=== PATIENT | male | born 1955 | race Caucasian/White ===

== ENCOUNTER 2017-04-23 06:44 | Emergency (ER) | payer MEDICARE, MEDICAID ==
[2017-04-23 07:16] VITALS: BP 167/98
--- NOTE | 2017-04-23 07:47 | EDM.PDOC ---
ED HPI GENERAL MEDICAL PROBLEM - General Chief Complaint: General Stated Complaint: LEFT EAR PAIN Time Seen by Provider: 04/23/17 07:20 Source of Information: Reports: Patient History Limitations: Reports: No Limitations - History of Present Illness INITIAL COMMENTS - FREE TEXT/NARRATIVE: 62 YO WM presents to ER complaining of left ear pain with bloody drainage. Pt reports his ear was hurting prompting him to use a Qtip in his ear this am. After using the Qtip he noticed a bloody discharge from his left ear. Pt denies any fever or URI symptoms. Onset: Today Location: Reports: Other (left ear) Quality: Reports: Ache Severity: Mild Improves with: Reports: None Worsens with: Reports: None Associated Symptoms: Reports: No Other Symptoms - Related Data Allergies Allergy/AdvReac Type Severity Reaction Status Date / Time No Known Drug Allergies Allergy Other Verified 04/23/17 06:58 Home Meds: Home Meds Insulin Detemir [Levemir] 34 units SQ BEDTIME 02/18/14 [History] Insulin Regular, Human [NovoLIN R] 5 units SQ TIDMEALS PRN 02/18/14 [History] Lisinopril [Prinivil] 20 mg PO DAILY 02/18/14 [History] Tamsulosin [Tamsulosin 24 Hr] 0.4 mg PO DAILY 02/18/14 [History] Diazepam [Diazepam] 10 mg PO BEDTIME PRN 10/05/15 [History] Gemfibrozil [Gemfibrozil] 600 mg PO BIDAC 10/05/15 [History] Levothyroxine Sodium [Levothyroxine Sodium] 100 mcg PO DAILY 10/05/15 [History] oxyCODONE HCl [Oxycontin] 10 mg PO TID PRN 10/05/15 [History] Albuterol Sulfate [Proair Hfa] 2 puff IH Q4H PRN 09/13/16 [History] Amoxicillin/Clavulanate K [Augmentin 875 MG/125 MG] 1 tab PO Q12HR #20 tablet [Rx] Hydrocort/Neomycin/Polymyxin B [Cortisporin Otic Susp] 10 ml EARLF QID #10 bottle 04/23/17 [Rx] Past Medical History Other HEENT History: blind in left eye Cardiovascular History: Reports: High Cholesterol, Hypertension Genitourinary History: Reports: Other (See Below) Other Genitourinary History: on flomax for urinary flow Musculoskeletal History: Reports: Arthritis Neurological History: Reports: Head Trauma Endocrine/Metabolic History: Reports: Diabetes, Type II, Hypothyroidism Hematologic History: Reports: Anemia - Infectious Disease History Infectious Disease History: Reports: Hepatitis C - Past Surgical History Neurological Surgical History: Reports: C-Spine Social & Family History - Tobacco Use Smoking Status *Q: Former Smoker Years of Tobacco use: 40 Packs/Tins Daily: 1 Used Tobacco, but Quit: Yes Month Tobacco Last Used: nov Second Hand Smoke Exposure: No - Caffeine Use Caffeine Use: Reports: Coffee, Soda - Alcohol Use Days Per Week of Alcohol Use: 0 - Recreational Drug Use Recreational Drug Use: No Drug Use in Last 12 Months: No Recreational Drug Type: Reports: Marijuana/Hashish ED ROS GENERAL - Review of Systems Review Of Systems: See Below Constitutional: Reports: No Symptoms HEENT: Reports: Ear Discharge, Ear Pain, Hearing Loss. Denies: Vertigo Respiratory: Reports: No Symptoms Cardiovascular: Reports: No Symptoms Endocrine: Reports: No Symptoms GI/Abdominal: Reports: No Symptoms : Reports: No Symptoms Musculoskeletal: Reports: No Symptoms Skin: Reports: No Symptoms Neurological: Reports: No Symptoms Psychiatric: Reports: No Symptoms Hematologic/Lymphatic: Reports: No Symptoms Immunologic: Reports: No Symptoms ED EXAM, GENERAL - Physical Exam Exam: See Below Exam Limited By: No Limitations General Appearance: Alert, WD/WN, No Apparent Distress Ear Exam: Left Ear: Bleeding, Erythema, Tenderness, TM Dull, TM Red, TM Bulging Nose: Normal Inspection, Normal Mucosa, No Blood Throat/Mouth: Normal Inspection, Normal Lips, Normal Teeth, Normal Gums, Normal Oropharynx, Normal Voice, No Airway Compromise Head: Atraumatic, Normocephalic Neck: Normal Inspection, Supple, Non-Tender, Full Range of Motion Respiratory/Chest: No Respiratory Distress, Lungs Clear, Normal Breath Sounds, No Accessory Muscle Use, Chest Non-Tender Cardiovascular: Normal Peripheral Pulses, Regular Rate, Rhythm, No Edema, No Gallop, No JVD, No Murmur, No Rub GI/Abdominal: Normal Bowel Sounds, Soft, Non-Tender, No Organomegaly, No Distention, No Abnormal Bruit, No Mass Back Exam: Normal Inspection, Full Range of Motion, NT Extremities: Normal Inspection, Normal Range of Motion, Non-Tender, Normal Capillary Refill, No Pedal Edema Neurological: Alert, Oriented, CN II-XII Intact, Normal Cognition, Normal Gait, Normal Reflexes, No Motor/Sensory Deficits Psychiatric: Normal Affect, Normal Mood Skin Exam: Warm, Dry, Intact, Normal Color, No Rash Lymphatic: No Adenopathy Course - Vital Signs Last Recorded V/S: Last Vital Signs Temp 36.0 C 04/23/17 07:00 Pulse 80 04/23/17 07:00 Resp 20 04/23/17 07:00 BP 167/98 H 04/23/17 07:00 Pulse Ox 97 04/23/17 07:00 Departure - Departure Time of Disposition: 07:45 Disposition: Home, Self-Care 01 Condition: Good Clinical Impression: Otitis media Qualifiers: Otitis media type: serous Chronicity: acute Laterality: left Recurrence: not specified as recurrent Qualified Code(s): H65.02 - Acute serous otitis media, left ear - Discharge Information Prescriptions: Amoxicillin/Clavulanate K [Augmentin 875 MG/125 MG] 1 tab PO Q12HR #20 tablet Hydrocort/Neomycin/Polymyxin B [Cortisporin Otic Susp] 10 ml EARLF QID #10 bottle Instructions: Ear Drainage, [id number], Serous Otitis Media Referrals: PCP,Unknown [Primary Care Provider] - Saul Eugene MD [Physician] - Forms: ED Department Discharge - Assessment/Plan Assessment:: 1. left serous otitis media Plan: 1. augmentin 875mg PO BID 2. cortisporin otic drops 3. follow up with PCP next 48-72 hours if no improvement
== END 2017-04-23 07:52 | disposition home or self-care (01) ==
LOC: KA.ED 06:44
DX: H65.02 Acute serous otitis media, left ear (principal); I10 Essential (primary) hypertension; E78.00 Pure hypercholesterolemia, unspecified; M19.90 Unspecified osteoarthritis, unspecified site; E11.9 Type 2 diabetes mellitus without complications; E03.9 Hypothyroidism, unspecified; Z86.2 Personal history of diseases of the blood and blood-forming organs and certain disorders involving the immune mechanism; Z87.891 Personal history of nicotine dependence; Z79.899 Other long term (current) drug therapy
CPT/HCPCS: 99282; 99283

== ENCOUNTER 2017-05-11 09:12 | Emergency (ER) | payer MEDICARE, MEDICAID ==
[2017-05-11 09:26] VITALS: BP 128/68
[2017-05-11] MEDS ORDERED: Erythromycin Base 0.5% Ophth Oint 3.5 GM Tube ONE (09:35)
[2017-05-11] MEDS ORDERED: Erythromycin Base 0.5% Ophth Oint 1 GM Tube EYERT ONE (09:37)
--- NOTE | 2017-05-11 09:43 | EDM.PDOC ---
ED HPI GENERAL MEDICAL PROBLEM - General Chief Complaint: Eye Problems Stated Complaint: right swollen eye Time Seen by Provider: 05/11/17 09:37 Source of Information: Reports: Patient History Limitations: Reports: No Limitations - History of Present Illness INITIAL COMMENTS - FREE TEXT/NARRATIVE: PT WOKE THIS AM WITH RIGHT EYE IRRITATION / STYE AND SQUEEZED PIMPLE. SWELLING DEVELOPED SO HE PRESENTED TO ER. DENIES TRAUMA, VISION CHANGE, OR FEVER. Onset: Today Duration: Hour(s):, Getting Worse Location: Reports: Face Quality: Reports: Burning Severity: Mild Improves with: Reports: None Worsens with: Reports: None Associated Symptoms: Reports: No Other Symptoms right eye Pain Score (Numeric/FACES): 4 - Related Data Allergies Allergy/AdvReac Type Severity Reaction Status Date / Time No Known Drug Allergies Allergy Other Verified 05/11/17 09:18 Home Meds: Home Meds Insulin Detemir [Levemir] 34 units SQ BEDTIME 02/18/14 [History] Insulin Regular, Human [NovoLIN R] 5 units SQ TIDMEALS PRN 02/18/14 [History] Lisinopril [Prinivil] 20 mg PO DAILY 02/18/14 [History] Tamsulosin [Tamsulosin 24 Hr] 0.4 mg PO DAILY 02/18/14 [History] Diazepam [Diazepam] 10 mg PO BEDTIME PRN 10/05/15 [History] Gemfibrozil [Gemfibrozil] 600 mg PO BIDAC 10/05/15 [History] Levothyroxine Sodium [Levothyroxine Sodium] 100 mcg PO DAILY 10/05/15 [History] oxyCODONE HCl [Oxycontin] 10 mg PO TID PRN 10/05/15 [History] Albuterol Sulfate [Proair Hfa] 2 puff IH Q4H PRN 09/13/16 [History] Past Medical History HEENT History: Reports: Impaired Vision Other HEENT History: blind in left eye Cardiovascular History: Reports: High Cholesterol, Hypertension Genitourinary History: Reports: Other (See Below) Other Genitourinary History: on flomax for urinary flow Musculoskeletal History: Reports: Arthritis, Back Pain, Chronic, Other (See Below) Other Musculoskeletal History: scoliosis. disc issues Neurological History: Reports: Head Trauma Endocrine/Metabolic History: Reports: Hypothyroidism, IDDM Hematologic History: Reports: Anemia - Infectious Disease History Infectious Disease History: Reports: Hepatitis C - Past Surgical History Neurological Surgical History: Reports: C-Spine Social & Family History - Tobacco Use Smoking Status *Q: Former Smoker Years of Tobacco use: 40 Packs/Tins Daily: 1 Used Tobacco, but Quit: Yes Month Tobacco Last Used: nov Second Hand Smoke Exposure: No - Caffeine Use Caffeine Use: Reports: Coffee, Soda - Alcohol Use Days Per Week of Alcohol Use: 0 - Recreational Drug Use Recreational Drug Use: No Drug Use in Last 12 Months: No Recreational Drug Type: Reports: Marijuana/Hashish ED ROS GENERAL - Review of Systems Review Of Systems: ROS reveals no pertinent complaints other than HPI. Constitutional: Reports: No Symptoms HEENT: Reports: Eye Pain Respiratory: Reports: No Symptoms Cardiovascular: Reports: No Symptoms Endocrine: Reports: No Symptoms GI/Abdominal: Reports: No Symptoms : Reports: No Symptoms Musculoskeletal: Reports: No Symptoms Skin: Reports: No Symptoms Neurological: Reports: No Symptoms Psychiatric: Reports: No Symptoms Hematologic/Lymphatic: Reports: No Symptoms Immunologic: Reports: No Symptoms ED EXAM GENERAL W FULL EYE - Physical Exam Exam: See Below Exam Limited By: No Limitations General Appearance: Alert, WD/WN, No Apparent Distress Eyelids: Right: Stye Conjunctiva & Sclera: Bilateral: Normal Appearance Extraocular Movements: Bilateral: Intact Pupils: Normal Accommodation Nose: Normal Inspection, Normal Mucosa, No Blood Throat/Mouth: Normal Inspection, Normal Oropharynx, No Airway Compromise Head: Atraumatic, Normocephalic Neck: Normal Inspection Respiratory/Chest: No Respiratory Distress Neurological: Alert, Oriented, Normal Cognition Psychiatric: Normal Affect, Normal Mood Skin Exam: Warm, Dry, Intact, Normal Color, No Rash Lymphatic: No Adenopathy Course - Vital Signs Last Recorded V/S: Last Vital Signs Temp 97 F 05/11/17 09:26 Pulse 78 05/11/17 09:26 Resp 18 05/11/17 09:26 BP 128/68 05/11/17 09:26 Pulse Ox 97 05/11/17 09:26 - Orders/Labs/Meds Orders: Active Orders 24 hr Category Date Time Status Erythromycin Base [Erythromycin 0.5% Ophth Oint] Med 05/11/17 09:37 Once 1 gm EYERT ONETIME ONE - Re-Assessments/Exams Free Text/Narrative Re-Assessment/Exam: 05/11/17 09:41 PT AFEBRILE, NONTOXIC APPEARING, VSS, ERYTHROMYCIN APPLIED AND MEDS TO GO HOME GIVEN WITH INSTRUCTIONS Departure - Departure Time of Disposition: 09:42 Disposition: Home, Self-Care 01 Condition: Good Clinical Impression: Hordeolum externum (stye) Qualifiers: Laterality: right Eyelid: lower Qualified Code(s): H00.012 - Hordeolum externum right lower eyelid - Discharge Information Instructions: Stye Forms: ED Department Discharge Additional Instructions: FOLLOW UP WITH PCP IN NEXT 2 DAYS. RETURN TO ER SOONER IF SYMPTOMS CONTINUE - My Orders Last 24 Hours: My Active Orders 05/11/17 09:37 Erythromycin Base [Erythromycin 0.5% Ophth Oint] 1 gm EYERT ONETIME ONE - Assessment/Plan Last 24 Hours: My Active Orders 05/11/17 09:37 Erythromycin Base [Erythromycin 0.5% Ophth Oint] 1 gm EYERT ONETIME ONE Assessment:: RIGHT EYE STYE Plan: F/U WITH PCP
== END 2017-05-11 09:48 | disposition home or self-care (01) ==
LOC: KA.ED 09:12
DX: H00.012 Hordeolum externum right lower eyelid (principal); I10 Essential (primary) hypertension; E78.00 Pure hypercholesterolemia, unspecified; M19.90 Unspecified osteoarthritis, unspecified site; E03.9 Hypothyroidism, unspecified; E11.9 Type 2 diabetes mellitus without complications; Z86.2 Personal history of diseases of the blood and blood-forming organs and certain disorders involving the immune mechanism; Z79.4 Long term (current) use of insulin; Z79.899 Other long term (current) drug therapy; Z87.891 Personal history of nicotine dependence
CPT/HCPCS: 99283; A9270-GY

== ENCOUNTER 2017-05-13 15:55 | Emergency (ER) | payer MEDICARE, MEDICAID ==
[~2017-05-13 15:55] MED LIST: Dexamethasone/Neomycin/Polymyxin B Ophth Oint 3.5 GM Tube EYERT ONE
[2017-05-13 16:21] VITALS: BP 144/98
--- NOTE | 2017-05-13 18:54 | EDM.PDOC ---
ED HPI GENERAL MEDICAL PROBLEM - General Chief Complaint: Eye Problems Stated Complaint: painful right eye Time Seen by Provider: 05/13/17 16:06 Source of Information: Reports: Patient History Limitations: Reports: No Limitations - History of Present Illness INITIAL COMMENTS - FREE TEXT/NARRATIVE: 62-year-old male presents to the emergency room with a painful draining external hordeolum. Patient was seen on the [facility] emergency room by Otoniel Adams and started on warm compresses and a antibiotic ointment. Patient reports that he had been squeezing the stye and continues to be irritated. He reports that is extremely tender. He denies any fever or chills. He denies any visual changes. He continues to wipe the eye likely removing the antibiotic ointment. Onset: Gradual Onset Date: 05/09/17 Duration: Day(s):, Constant Location: Reports: Other (right eye) Quality: Reports: Throbbing Severity: Moderate Improves with: Reports: Medication, Other (warm packs) Associated Symptoms: Reports: No Other Symptoms. Denies: Fever/Chills, Headaches, Nausea/Vomiting, Rash Treatments LANGUAGE ASST: Reports: Dressing(s) Right Eye Pain Score (Numeric/FACES): 9 - Related Data Allergies Allergy/AdvReac Type Severity Reaction Status Date / Time No Known Drug Allergies Allergy Other Verified 05/13/17 16:28 Home Meds: Home Meds Insulin Detemir [Levemir] 34 units SQ BEDTIME 02/18/14 [History] Insulin Regular, Human [NovoLIN R] 5 units SQ TIDMEALS PRN 02/18/14 [History] Lisinopril [Prinivil] 20 mg PO DAILY 02/18/14 [History] Tamsulosin [Tamsulosin 24 Hr] 0.4 mg PO DAILY 02/18/14 [History] Diazepam [Diazepam] 10 mg PO BEDTIME PRN 10/05/15 [History] Gemfibrozil [Gemfibrozil] 600 mg PO BIDAC 10/05/15 [History] Levothyroxine Sodium [Levothyroxine Sodium] 100 mcg PO DAILY 10/05/15 [History] oxyCODONE HCl [Oxycontin] 10 mg PO TID PRN 10/05/15 [History] Albuterol Sulfate [Proair Hfa] 2 puff IH Q4H PRN 09/13/16 [History] Nicolas/Polymyx B Sulf/Dexameth [Maxitrol Eye Ointment] 1 applic OP QID 05/13/17 [ History] Past Medical History HEENT History: Reports: Impaired Vision Other HEENT History: blind in left eye Cardiovascular History: Reports: High Cholesterol, Hypertension Genitourinary History: Reports: Other (See Below) Other Genitourinary History: on flomax for urinary flow Musculoskeletal History: Reports: Arthritis, Back Pain, Chronic, Other (See Below) Other Musculoskeletal History: scoliosis. disc issues Neurological History: Reports: Head Trauma Endocrine/Metabolic History: Reports: Hypothyroidism, IDDM Hematologic History: Reports: Anemia - Infectious Disease History Infectious Disease History: Reports: Hepatitis C - Past Surgical History Neurological Surgical History: Reports: C-Spine Social & Family History - Tobacco Use Smoking Status *Q: Former Smoker Years of Tobacco use: 40 Packs/Tins Daily: 1 Used Tobacco, but Quit: Yes Month Tobacco Last Used: nov Second Hand Smoke Exposure: No - Caffeine Use Caffeine Use: Reports: Coffee, Soda - Alcohol Use Days Per Week of Alcohol Use: 0 - Recreational Drug Use Recreational Drug Use: No Drug Use in Last 12 Months: No Recreational Drug Type: Reports: Marijuana/Hashish ED ROS GENERAL - Review of Systems Review Of Systems: See Below Constitutional: Denies: Fever, Chills HEENT: Reports: Ear Pain (left ear), Eye Discharge, Eye Pain. Denies: Contact Lenses, Dental Pain, Ear Discharge, Nose Pain, Rhinitis, Sinus Problem, Throat Pain, Throat Swelling, Vertigo, Vision Change Respiratory: Reports: No Symptoms Endocrine: Reports: High Glucose GI/Abdominal: Reports: No Symptoms Musculoskeletal: Denies: Neck Pain Neurological: Denies: Confusion, Dizziness, Headache, Trouble Speaking ED EXAM GENERAL W FULL EYE - Physical Exam Exam: See Below Exam Limited By: No Limitations General Appearance: Alert, WD/WN, No Apparent Distress Eye Exam: Right Eye: Other (external hordeolum presenting with inflammation and abscess formation of the lower eyelid right eye. Areas tender with a mild drainage along the eyelid margin no evidence of associated cellulitis or systemic findings around the face or maxillary region), Bilateral Eye: EOMI, PERRL Eyelids: Right: Edema, Erythema, Stye Conjunctiva & Sclera: Right: Discharge Cornea Exam: Bilateral: Normal Appearance Extraocular Movements: Bilateral: Intact Pupils: Normal Accommodation Pupillary Size: Bilateral: 3 mm Ears: Other (blood in left ear ) Nose: Normal Inspection, No Blood Throat/Mouth: Normal Inspection, Normal Voice Head: No: Facial Swelling, Facial Tenderness, Sinus Tenderness Neck: Normal Inspection, Supple, Non-Tender, Full Range of Motion. No: Lymphadenopathy (L), Lymphadenopathy (R) Respiratory/Chest: No Respiratory Distress, Lungs Clear Course - Vital Signs Last Recorded V/S: Last Vital Signs Temp 98 F 05/13/17 16:06 Pulse 68 05/13/17 16:06 Resp 20 05/13/17 16:06 BP 144/98 H 05/13/17 16:06 Pulse Ox 99 05/13/17 16:06 - Orders/Labs/Meds Orders: Active Orders 24 hr Category Date Time Status CULTURE WOUND [RM] Stat Lab 05/13/17 16:18 Received Departure - Departure Time of Disposition: 17:00 Disposition: Home, Self-Care 01 Condition: Good Clinical Impression: Hordeolum externum (stye) Qualifiers: Laterality: right Eyelid: lower Qualified Code(s): H00.012 - Hordeolum externum right lower eyelid - Discharge Information Instructions: Stye Referrals: Beck Eng PA [Primary Care Provider] - Manan Bird [Ordering Only Provider] - Additional Instructions: 1. Neopolydex ointment 4 times a day. Do not wipe off with a washcloth. 2. Continue with warm compresses prior to treatment with the antibiotic 4 times a day. 3. Follow-up with Dr. Bird on Tuesday if you do not feel that this is improving. - My Orders Last 24 Hours: My Active Orders 05/13/17 16:18 CULTURE WOUND [RM] Stat - Assessment/Plan Last 24 Hours: My Active Orders 05/13/17 16:18 CULTURE WOUND [RM] Stat Assessment:: External Hordeolum Plan: 1. Neopolydex ointment 4 times a day. Do not wipe off with a washcloth. 2. Continue with warm compresses prior to treatment with the antibiotic 4 times a day. 3. Follow-up with Dr. Bird on Tuesday if you do not feel that this is improving.
[2017-05-17] MEDS ORDERED: Dexamethasone/Neomycin/Polymyxin B Ophth Oint 3.5 GM Tube EYERT SCH (15:00)
== END 2017-05-13 17:00 | disposition home or self-care (01) ==
LOC: KA.ED 15:55
DX: H00.012 Hordeolum externum right lower eyelid (principal); I10 Essential (primary) hypertension; E78.00 Pure hypercholesterolemia, unspecified; M19.90 Unspecified osteoarthritis, unspecified site; E03.9 Hypothyroidism, unspecified; E11.9 Type 2 diabetes mellitus without complications; Z86.2 Personal history of diseases of the blood and blood-forming organs and certain disorders involving the immune mechanism; Z87.891 Personal history of nicotine dependence; Z79.4 Long term (current) use of insulin; Z79.899 Other long term (current) drug therapy
CPT/HCPCS: 87070; 87077; 87186; 99282; A9270-GY

== ENCOUNTER 2017-06-03 07:44 | Emergency (ER) | payer MEDICARE, MEDICAID ==
[2017-06-03] MEDS ORDERED: Sodium Chloride 0.9% 5 ML Syringe FLUSH PRN (08:02)
--- NOTE | 2017-06-03 08:18 | EDM.PDOC ---
ED HPI GENERAL MEDICAL PROBLEM - General Chief Complaint: Diabetic Complaint Stated Complaint: DIABETIC Time Seen by Provider: 06/03/17 08:00 Source of Information: Reports: Patient, EMS, EMS Notes Reviewed, Family History Limitations: Reports: No Limitations - History of Present Illness INITIAL COMMENTS - FREE TEXT/NARRATIVE: PT WAS FOUND UNRESPONSIVE BY THIS AM AND CONTACTED EMS. FOUND TO HAVE BG OF 26. GIVEN D50 AND TRANSPORTED TO ER WITH BG OF 160. AGITATED AND EXTREMITY CRAMPING BUT AAOX3. PER HAD LOW BG LAST NIGHT AND ATE BEFORE BEDTIME. SHE NOTICED A CHANGE IN BREATHING SO TRIED TO WAKE HIM UNSUCCESSFULLY. EXCESSIVE ACTIVITY OUTSIDE YESTERDAY AND INADEQUATE FLUID INTAKE. DENIES FEVER, CP, SOB, N /V/D. H/O OF DIFFICULT DIABETIC CONTROL. Onset: Today Severity: Moderate Improves with: Reports: Medication Worsens with: Reports: None Associated Symptoms: Reports: Confusion, Other (MUSCLE CRAMPING) Bilateral Upper Leg Pain Score (Numeric/FACES): 10 - Related Data Allergies Allergy/AdvReac Type Severity Reaction Status Date / Time No Known Drug Allergies Allergy Other Verified 06/03/17 08:28 Home Meds: Home Meds Insulin Detemir [Levemir] 34 units SQ BEDTIME 02/18/14 [History] Insulin Regular, Human [NovoLIN R] 5 units SQ TIDMEALS PRN 02/18/14 [History] Lisinopril [Prinivil] 20 mg PO DAILY 02/18/14 [History] Tamsulosin [Tamsulosin 24 Hr] 0.4 mg PO DAILY 02/18/14 [History] Diazepam [Diazepam] 20 mg PO BEDTIME PRN 10/05/15 [History] Gemfibrozil [Gemfibrozil] 600 mg PO BIDAC 10/05/15 [History] Levothyroxine Sodium [Levothyroxine Sodium] 100 mcg PO DAILY 10/05/15 [History] oxyCODONE HCl [Oxycontin] 10 mg PO TID PRN 10/05/15 [History] Past Medical History HEENT History: Reports: Impaired Vision Other HEENT History: blind in left eye Cardiovascular History: Reports: High Cholesterol, Hypertension Genitourinary History: Reports: Other (See Below) Other Genitourinary History: on flomax for urinary flow Musculoskeletal History: Reports: Arthritis, Back Pain, Chronic, Other (See Below) Other Musculoskeletal History: scoliosis. disc issues Neurological History: Reports: Head Trauma Endocrine/Metabolic History: Reports: Hypothyroidism, IDDM Hematologic History: Reports: Anemia - Infectious Disease History Infectious Disease History: Reports: Hepatitis C - Past Surgical History Neurological Surgical History: Reports: C-Spine Social & Family History - Tobacco Use Smoking Status *Q: Former Smoker Years of Tobacco use: 40 Packs/Tins Daily: 1 Used Tobacco, but Quit: Yes Month Tobacco Last Used: nov Second Hand Smoke Exposure: No - Caffeine Use Caffeine Use: Reports: Coffee, Soda - Alcohol Use Days Per Week of Alcohol Use: 0 - Recreational Drug Use Recreational Drug Use: No Drug Use in Last 12 Months: No Recreational Drug Type: Reports: Marijuana/Hashish ED ROS GENERAL - Review of Systems Review Of Systems: ROS reveals no pertinent complaints other than HPI. Constitutional: Reports: Night Sweats HEENT: Reports: No Symptoms Respiratory: Reports: No Symptoms Cardiovascular: Reports: No Symptoms Endocrine: Reports: Low Glucose GI/Abdominal: Reports: No Symptoms : Reports: No Symptoms Musculoskeletal: Reports: Muscle Pain, Muscle Stiffness Skin: Reports: No Symptoms Neurological: Reports: Confusion Psychiatric: Reports: No Symptoms Hematologic/Lymphatic: Reports: No Symptoms Immunologic: Reports: No Symptoms ED EXAM GENERAL NO PERIP PULSE - Physical Exam Exam: See Below Exam Limited By: No Limitations General Appearance: Alert, WD/WN, No Apparent Distress, Anxious Eye Exam: Bilateral Eye: Normal Inspection Nose: Normal Inspection, Normal Mucosa, No Blood Throat/Mouth: Normal Inspection, Normal Oropharynx, No Airway Compromise Head: Atraumatic, Normocephalic Neck: Normal Inspection, Supple, Non-Tender Respiratory/Chest: No Respiratory Distress, Lungs Clear, Normal Breath Sounds, No Accessory Muscle Use, Chest Non-Tender Cardiovascular: Regular Rate, Rhythm, No Murmur GI/Abdominal: Soft, Non-Tender, No Organomegaly, No Distention, No Abnormal Bruit, No Mass Back Exam: Normal Inspection. No: CVA Tenderness (L), CVA Tenderness (R) Extremities: Normal Inspection, Other (BILAT LE CRAMPING) Neurological: Alert, Confused Psychiatric: Anxious Skin Exam: Warm, Dry, Intact, Normal Color, No Rash Lymphatic: No Adenopathy Course - Vital Signs Last Recorded V/S: Last Vital Signs Temp 95.1 F L 06/03/17 10:15 Pulse 65 06/03/17 10:15 Resp 16 06/03/17 10:15 BP 179/82 H 06/03/17 10:15 Pulse Ox 98 06/03/17 10:15 - Orders/Labs/Meds Orders: Active Orders 24 hr Category Date Time Status Glucose [Blood Glucose Check, Bedside] [RC] Q1HR Care 06/03/17 09:23 Active Peripheral IV Care [RC] . DIRECTED Care 06/03/17 08:02 Active Dextrose 5%-0.9% NaCl [Dextrose 5%-Normal Saline] 1,000 Med 06/03/17 09:30 Active ml IV ASDIRECTED Sodium Chloride 0.9% [Syrex Flush] Med 06/03/17 08:02 Active 5 ml FLUSH Q8HR PRN Peripheral IV Insertion Adult [OM.PC] Routine Oth 06/03/17 08:02 Ordered Medication Orders Dextrose/Sodium Chloride (Dextrose 5%-Normal Saline) 1,000 mls @ 100 mls/hr IV ASDIRECTED NELSON Sodium Chloride (Syrex Flush) 5 ml FLUSH Q8HR PRN PRN Reason: Keep Vein Open Labs: Laboratory Tests 06/03/17 06/03/17 06/03/17 Range/Units 08:15 08:15 08:15 WBC 10.8 H (5.0-10.0) 10^3/uL RBC 4.70 (4.50-6.00) 10^6/uL Hgb 14.6 (13.0-17.0) g/dL Hct 43.9 (40.0-52.0) % MCV 93.3 H (82.0-92.0) fL MCH 31.0 (27.0-31.0) pg MCHC 33.3 (32.0-36.0) g/dL RDW 13.2 (11.5-14.5) % Plt Count 183 (150-300) 10^3/uL MPV 8.3 (7.4-10.4) fL Neut % (Auto) 84.6 H (50.0-70.0) % Lymph % (Auto) 10.8 L (20.0-40.0) % Dale % (Auto) 3.4 (2.0-8.0) % Eos % (Auto) 0.7 L (1.0-3.0) % Baso % (Auto) 0.5 (0.0-1.0) % Neut # (Auto) 9.0 H (2.5-7.0) 10^3/uL Lymph # (Auto) 1.2 (1.0-4.0) 10^3/uL Dale # (Auto) 0.4 (0.1-0.8) 10^3/uL Eos # (Auto) 0.1 (0.1-0.3) 10^3/uL Baso # (Auto) 0.1 (0.0-0.1) 10^3/uL Sodium 144 (136-145) mmol/L Potassium 3.5 (3.3-5.3) mmol/L Chloride 106 (98-115) mmol/L Carbon Dioxide 25.1 (21.0-32.0) mmol/L BUN 17 (6-25) mg/dL Creatinine 0.70 (0.51-1.17) mg/dL Est Cr Clr Drug Dosing 97.47 mL/min Estimated GFR (MDRD) > 60 mL/min Glucose 68 L (70-110) mg/dL POC Glucose (74-106) mg/dl Calcium 8.3 L (8.7-10.3) mg/dL Total Bilirubin 0.3 (0.2-1.0) mg/dL AST 38 H (15-37) U/L ALT 32 (12-78) U/L Alkaline Phosphatase 113 (46-116) IU/L Total Protein 8.2 (6.4-8.2) g/dL Albumin 4.11 (3.00-4.80) g/dL Specimen Type Urinvoid Urine Color Light yellow (YELLOW) Urine Appearance Clear (CLEAR) Urine pH 6.5 (5.0-9.0) Ur Specific [address] 1.020 (1.005-1.030) Urine Protein 100 H (NEGATIVE) mg/dL Urine Glucose (UA) 100 H (NEGATIVE) mg/dL Urine Ketones Negative (NEGATIVE) mg/dL Urine Occult Blood Small H (NEGATIVE) Urine Nitrite Negative (NEGATIVE) Urine Bilirubin Negative (NEGATIVE) Urine Urobilinogen 0.2 (0.2-1.0) E.U./dL Ur Leukocyte Esterase Negative (NEGATIVE) Urine RBC 5-10 H /HPF Urine WBC 0-5 /HPF Ur Epithelial Cells Rare /LPF Urine Bacteria Rare (NONE TO FEW) /HPF 06/03/17 06/03/17 06/03/17 Range/Units 08:45 08:53 10:24 WBC (5.0-10.0) 10^3/uL RBC (4.50-6.00) 10^6/uL Hgb (13.0-17.0) g/dL Hct (40.0-52.0) % MCV (82.0-92.0) fL MCH (27.0-31.0) pg MCHC (32.0-36.0) g/dL RDW (11.5-14.5) % Plt Count (150-300) 10^3/uL MPV (7.4-10.4) fL Neut % (Auto) (50.0-70.0) % Lymph % (Auto) (20.0-40.0) % Dale % (Auto) (2.0-8.0) % Eos % (Auto) (1.0-3.0) % Baso % (Auto) (0.0-1.0) % Neut # (Auto) (2.5-7.0) 10^3/uL Lymph # (Auto) (1.0-4.0) 10^3/uL Dale # (Auto) (0.1-0.8) 10^3/uL Eos # (Auto) (0.1-0.3) 10^3/uL Baso # (Auto) (0.0-0.1) 10^3/uL Sodium (136-145) mmol/L Potassium (3.3-5.3) mmol/L Chloride (98-115) mmol/L Carbon Dioxide (21.0-32.0) mmol/L BUN (6-25) mg/dL Creatinine (0.51-1.17) mg/dL Est Cr Clr Drug Dosing mL/min Estimated GFR (MDRD) mL/min Glucose (70-110) mg/dL POC Glucose 27 L* 209 H 225 H (74-106) mg/dl Calcium (8.7-10.3) mg/dL Total Bilirubin (0.2-1.0) mg/dL AST (15-37) U/L ALT (12-78) U/L Alkaline Phosphatase (46-116) IU/L Total Protein (6.4-8.2) g/dL Albumin (3.00-4.80) g/dL Specimen Type Urine Color (YELLOW) Urine Appearance (CLEAR) Urine pH (5.0-9.0) Ur Specific [address] (1.005-1.030) Urine Protein (NEGATIVE) mg/dL Urine Glucose (UA) (NEGATIVE) mg/dL Urine Ketones (NEGATIVE) mg/dL Urine Occult Blood (NEGATIVE) Urine Nitrite (NEGATIVE) Urine Bilirubin (NEGATIVE) Urine Urobilinogen (0.2-1.0) E.U./dL Ur Leukocyte Esterase (NEGATIVE) Urine RBC /HPF Urine WBC /HPF Ur Epithelial Cells /LPF Urine Bacteria (NONE TO FEW) /HPF Meds: Medications Generic Name Dose Route Start Last Admin Trade Name Freq PRN Reason Stop Dose Admin Dextrose/Sodium Chloride 1,000 mls @ 100 mls/hr 06/03/17 09:30 Dextrose 5%-Normal Saline IV ASDIRECTED NELSON Sodium Chloride 5 ml 06/03/17 08:02 Syrex Flush FLUSH Q8HR PRN Keep Vein Open Discontinued Medications Generic Name Dose Route Start Last Admin Trade Name Freq PRN Reason Stop Dose Admin Dextrose/Water 50 ml 06/03/17 08:45 06/03/17 08:48 Dextrose 50% In Water IVPUSH 06/03/17 08:46 50 ml ONETIME ONE Administration Dextrose/Water Confirm 06/03/17 08:47 06/03/17 09:06 Dextrose 50% In Water Administered 06/03/17 08:48 Not Given Dose 50 ml .ROUTE .STK-MED ONE Dextrose/Sodium Chloride 1,000 mls @ 999 mls/hr 06/03/17 09:00 06/03/17 10:04 Dextrose 5%-1/2 Ns IV 100 mls/hr ASDIRECTED NELSON Infusion Dextrose/Sodium Chloride Confirm 06/03/17 08:47 06/03/17 09:06 Dextrose 5%-1/2 Ns Administered 06/03/17 08:48 Not Given Dose 1,000 mls @ as directed .ROUTE .STK-MED ONE Lisinopril 10 mg 06/03/17 08:35 06/03/17 09:07 Prinivil PO 06/03/17 08:36 Not Given ONETIME ONE Lisinopril 20 mg 06/03/17 08:39 06/03/17 09:04 Prinivil PO 06/03/17 08:40 20 mg ONETIME ONE Administration Ondansetron HCl 4 mg 06/03/17 08:39 06/03/17 08:45 Zofran IVPUSH 06/03/17 08:40 4 mg ONETIME ONE Administration Ondansetron HCl Confirm 06/03/17 08:41 06/03/17 09:07 Zofran Administered 06/03/17 08:42 Not Given Dose 4 mg .ROUTE .[facility] - Re-Assessments/Exams Free Text/Narrative Re-Assessment/Exam: 06/03/17 11:37 PT KEEP IN EXTENDED ER FOR GLUCOSE CONTROL AND EVALUATION. AFEBRILE, NONTOXIC APPEARING, GC 200'S. VSS, NONTOXIC APPEARING AND ACTING APPROPRIATE. WILL D/C WITH INSTRUCTIONS FOR FOOD INTAKE AND INSULIN ADMIN AND F/U WITH PCP SCHEDULED FOR TUESDAY Departure - Departure Time of Disposition: 11:41 Disposition: Home, Self-Care 01 Condition: Good Clinical Impression: Hypoglycemia Diabetes Qualifiers: Diabetes mellitus type: type 2 Diabetes mellitus complication status: with hypoglycemia Diabetes mellitus complication detail: without coma - Discharge Information Instructions: Type 2 Diabetes Mellitus, Adult, [id number] Additional Instructions: FOLLOW UP WITH PCP ON TUESDAY. RETURN TO ER SOONER IF SYMPTOMS CONTINUE - My Orders Last 24 Hours: My Active Orders 06/03/17 08:02 Peripheral IV Care [RC] . DIRECTED Sodium Chloride 0.9% [Syrex Flush] 5 ml FLUSH Q8HR PRN Peripheral IV Insertion Adult [OM.PC] Routine 06/03/17 09:23 Glucose [Blood Glucose Check, Bedside] [RC] Q1HR 06/03/17 09:30 Dextrose 5%-0.9% NaCl [Dextrose 5%-Normal Saline] 1,000 ml IV ASDIRECTED - Assessment/Plan Last 24 Hours: My Active Orders 06/03/17 08:02 Peripheral IV Care [RC] . DIRECTED Sodium Chloride 0.9% [Syrex Flush] 5 ml FLUSH Q8HR PRN Peripheral IV Insertion Adult [OM.PC] Routine 06/03/17 09:23 Glucose [Blood Glucose Check, Bedside] [RC] Q1HR 06/03/17 09:30 Dextrose 5%-0.9% NaCl [Dextrose 5%-Normal Saline] 1,000 ml IV ASDIRECTED Assessment:: DIABETIC WITH HYPOGLYCEMIA Plan: F/U WITH PCP
[2017-06-03] MEDS ORDERED: Lisinopril 10 MG Tab PO ONE ×2 (08:35→08:39)
[2017-06-03] MEDS ORDERED: Ondansetron 4 MG/2 ML SDV IVPUSH ONE (08:39)
[2017-06-03 08:41] LABS: CHLORIDE,CL 106 mmol/L (98-115); SODIUM,NA 144 mmol/L (136-145)
[2017-06-03] MEDS ORDERED: Ondansetron 4 MG/2 ML SDV ONE (08:41)
[2017-06-03] MEDS ORDERED: 50% Dextrose in Water 50 ML Syringe IVPUSH ONE (08:45)
[2017-06-03] MEDS ORDERED: 50% Dextrose in Water 50 ML Syringe ONE (08:47)
[2017-06-03] MEDS ORDERED: Dextrose 5%-0.45% NaCl 1,000 ML ONE (08:47)
[2017-06-03] MEDS ORDERED: Dextrose 5%-0.45% NaCl 1,000 ML IV SCH (09:00)
[2017-06-03] MEDS ORDERED: Dextrose 5%-0.9% NaCl 1,000 ML IV SCH (09:30)
[2017-06-03 10:16] VITALS: BP 179/82
== END 2017-06-03 12:35 | disposition home or self-care (01) ==
LOC: KA.ED 07:44
DX: E11.649 Type 2 diabetes mellitus with hypoglycemia without coma (principal); E78.00 Pure hypercholesterolemia, unspecified; I10 Essential (primary) hypertension; M19.90 Unspecified osteoarthritis, unspecified site; E03.9 Hypothyroidism, unspecified; Z79.4 Long term (current) use of insulin; Z79.899 Other long term (current) drug therapy; Z86.19 Personal history of other infectious and parasitic diseases; Z87.891 Personal history of nicotine dependence
CPT/HCPCS: 36415; 80053; 81001; 82962; 85025; 96374; 96375; 99283; A9270; J2405; J7042; 99284; J7060

== ENCOUNTER 2017-07-01 08:37 | Emergency (ER) | payer MEDICARE, MEDICAID ==
[2017-07-01 08:53] VITALS: BP 181/111
[2017-07-01] MEDS ORDERED: Ketorolac 60 MG/2 ML SDV IM SCH (09:15)
--- NOTE | 2017-07-01 10:04 | EDM.PDOC ---
ED HPI GENERAL MEDICAL PROBLEM - General Chief Complaint: Back Pain or Injury Stated Complaint: my back hurts Time Seen by Provider: 07/01/17 09:57 Source of Information: Reports: Patient History Limitations: Reports: No Limitations - History of Present Illness INITIAL COMMENTS - FREE TEXT/NARRATIVE: PT STATES HE HAS HAD RIGHT HIP AND LOW BACK PAIN FOR PAST 5 DAYS. EXACERBATION OF CHRONIC CONDITION. DENIES FALL, FEVER, TESTICULAR PAIN, BOWEL OR URINARY INCONT, CP, SOB, N/V/D, OR ABD PAIN. 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(s) (OXY) Right Lower Back Pain Score (Numeric/FACES): 10 - Related Data Allergies Allergy/AdvReac Type Severity Reaction Status Date / Time No Known Drug Allergies Allergy Other Verified 07/01/17 08:51 Home Meds: Home Meds Insulin Detemir [Levemir] 34 units SQ BEDTIME 02/18/14 [History] Insulin Regular, Human [NovoLIN R] 5 units SQ TIDMEALS PRN 02/18/14 [History] Lisinopril [Prinivil] 20 mg PO DAILY 02/18/14 [History] Diazepam [Diazepam] 20 mg PO BEDTIME PRN 10/05/15 [History] Gemfibrozil [Gemfibrozil] 600 mg PO BIDAC 10/05/15 [History] Levothyroxine Sodium [Levothyroxine Sodium] 100 mcg PO DAILY 10/05/15 [History] oxyCODONE HCl [Oxycontin] 10 mg PO TID PRN 10/05/15 [History] Past Medical History HEENT History: Reports: Impaired Vision Other HEENT History: blind in left eye Cardiovascular History: Reports: High Cholesterol, Hypertension Gastrointestinal History: Reports: None Genitourinary History: Reports: Other (See Below) Other Genitourinary History: on flomax for urinary flow Musculoskeletal History: Reports: Arthritis, Back Pain, Chronic, Other (See Below) Other Musculoskeletal History: scoliosis. disc issues Neurological History: Reports: Head Trauma Psychiatric History: Reports: Panic Attack Endocrine/Metabolic History: Reports: Hypothyroidism, IDDM Hematologic History: Reports: Anemia - Infectious Disease History Infectious Disease History: Reports: Hepatitis C - Past Surgical History HEENT Surgical History: Reports: None Cardiovascular Surgical History: Reports: None GI Surgical History: Reports: Cholecystectomy, Colonoscopy Endocrine Surgical History: Reports: None Neurological Surgical History: Reports: None Musculoskeletal Surgical History: Reports: None Social & Family History - Family History Family Medical History: Noncontributory - Tobacco Use Smoking Status *Q: Former Smoker Years of Tobacco use: 40 Packs/Tins Daily: 1 Used Tobacco, but Quit: Yes Month Tobacco Last Used: 10 Second Hand Smoke Exposure: No - Caffeine Use Caffeine Use: Reports: Coffee, Soda - Alcohol Use Days Per Week of Alcohol Use: 0 - Recreational Drug Use Recreational Drug Use: Yes Drug Use in Last 12 Months: Yes Recreational Drug Type: Reports: Marijuana/Hashish ED ROS GENERAL - Review of Systems Review Of Systems: ROS reveals no pertinent complaints other than HPI. Constitutional: Reports: No Symptoms HEENT: Reports: No Symptoms Respiratory: Reports: No Symptoms Cardiovascular: Reports: No Symptoms Endocrine: Reports: No Symptoms GI/Abdominal: Reports: No Symptoms : Reports: No Symptoms Musculoskeletal: Reports: Back Pain, Joint Pain (RIGHT HIP) Skin: Reports: No Symptoms Neurological: Reports: No Symptoms Psychiatric: Reports: Agitation Hematologic/Lymphatic: Reports: No Symptoms Immunologic: Reports: No Symptoms ED EXAM,LOWER BACK PAIN/INJURY - Physical Exam Exam: See Below Exam Limited By: No Limitations General Appearance: Alert, WD/WN, No Apparent Distress Throat/Mouth: Normal Inspection, Normal Oropharynx, No Airway Compromise Head: Atraumatic, Normocephalic Neck: Normal Inspection Respiratory/Chest: No Respiratory Distress Back Exam: Paraspinal Tenderness, Other (RIGHT HIP TENDERNESS WITH ROM). No: CVA Tenderness (L), CVA Tenderness (R), Vertebral Tenderness Extremities: Normal Inspection, No Pedal Edema Neurological: Alert, Normal Mood/Affect Psychiatric: Other (AGITATED) Lymphatic: No Adenopathy Course - Vital Signs Last Recorded V/S: Last Vital Signs Temp 96.6 F 07/01/17 08:39 Pulse 67 07/01/17 08:39 Resp 18 07/01/17 08:39 BP 181/111 H 07/01/17 08:39 Pulse Ox 99 07/01/17 08:39 - Orders/Labs/Meds Orders: Active Orders 24 hr Category Date Time Status Diazepam [Valium] Med 07/01/17 09:57 Once 5 mg PO ONETIME ONE Ketorolac [Toradol] Med 07/01/17 09:15 Active 60 mg IM ONETIME Medication Orders Diazepam (Valium.) 5 mg PO ONETIME ONE Stop: 07/01/17 09:58 Ketorolac Tromethamine (Toradol) 60 mg IM ONETIME NELSON Last Admin: 07/01/17 09:12 Dose: 60 mg Meds: Medications Generic Name Dose Route Start Last Admin Trade Name Masood PRN Reason Stop Dose Admin Diazepam 5 mg 07/01/17 09:57 Valium. PO 07/01/17 09:58 ONETIME ONE Ketorolac Tromethamine 60 mg 07/01/17 09:15 07/01/17 09:12 Toradol IM 60 mg ONETIME [facility] Administration - Re-Assessments/Exams Free Text/Narrative Re-Assessment/Exam: 07/01/17 10:04 PT AFEBRILE, NONTOXIC APPEARING, VSS. DISCUSSED IN LENGTH THE OPTIONS PT HAS. HE IS UNDER PAIN MANAGEMENT AND NOT ABLE TO BE SEEN BY PHYSICAL THERAPY HERE AT [place]. ADVISED TO CONSIDER CHIROPRACTOR FOR EVALUATION AND TREATMENT AND F/U WITH PCP. Departure - Departure Time of Disposition: 10:06 Disposition: Home, Self-Care 01 Condition: Fair Clinical Impression: Chronic back pain greater than 3 months duration - Discharge Information Instructions: Back Pain, Adult, [id number], Pain Medicine Instructions, Easy- to-Read, Chronic Back Pain, Back Injury Prevention, [id number] Referrals: Beck Eng, PA [Primary Care Provider] - Additional Instructions: FOLLOW UP WITH PCP AND CHIROPRACTOR IN NEXT FEW DAYS - My Orders Last 24 Hours: My Active Orders 07/01/17 09:15 Ketorolac [Toradol] 60 mg IM ONETIME 07/01/17 09:57 Diazepam [Valium] 5 mg PO ONETIME ONE - Assessment/Plan Last 24 Hours: My Active Orders 07/01/17 09:15 Ketorolac [Toradol] 60 mg IM ONETIME 07/01/17 09:57 Diazepam [Valium] 5 mg PO ONETIME ONE Assessment:: CHRONIC BACK PAIN Plan: F/U WITH PCP AND CHIROPRACTOR
[2017-07-01] MEDS: Diazepam 5 MG Tab PO ONE (10:08)
== END 2017-07-01 10:15 | disposition home or self-care (01) ==
LOC: KA.ED 08:37
DX: G89.29 Other chronic pain (principal); M54.5 Low back pain; M25.551 Pain in right hip; E78.00 Pure hypercholesterolemia, unspecified; I10 Essential (primary) hypertension; M19.90 Unspecified osteoarthritis, unspecified site; F41.0 Panic disorder [episodic paroxysmal anxiety]; E03.9 Hypothyroidism, unspecified; E11.9 Type 2 diabetes mellitus without complications; Z86.19 Personal history of other infectious and parasitic diseases; Z79.4 Long term (current) use of insulin; Z87.891 Personal history of nicotine dependence
CPT/HCPCS: 96372; 99283; A9270; J1885

== ENCOUNTER 2017-07-04 09:53 | Emergency (ER) | payer MEDICARE, MEDICAID ==
[2017-07-04 10:08] VITALS: BP 136/71
[2017-07-04] MEDS ORDERED: Ketorolac 60 MG/2 ML SDV IM ONE (11:18)
--- NOTE | 2017-07-04 11:24 | EDM.PDOC ---
ED HPI GENERAL MEDICAL PROBLEM - General Chief Complaint: Lower Extremity Injury/Pain Time Seen by Provider: 07/04/17 10:38 Source of Information: Reports: Patient History Limitations: Reports: No Limitations - History of Present Illness INITIAL COMMENTS - FREE TEXT/NARRATIVE: Patient presents with right hip pain. He says it feels like it is out of place and he felt a pop. No recent trauma or falls. He had a hard time walking out to his pickup today. No numbness or weakness. 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) Right Hip Pain Score (Numeric/FACES): 10 - Related Data Allergies Allergy/AdvReac Type Severity Reaction Status Date / Time No Known Drug Allergies Allergy Other Verified 07/04/17 10:08 Home Meds: Home Meds Insulin Detemir [Levemir] 34 units SQ BEDTIME 02/18/14 [History] Insulin Regular, Human [NovoLIN R] 5 units SQ TIDMEALS PRN 02/18/14 [History] Lisinopril [Prinivil] 20 mg PO DAILY 02/18/14 [History] Diazepam [Diazepam] 20 mg PO BEDTIME PRN 10/05/15 [History] Gemfibrozil [Gemfibrozil] 600 mg PO BIDAC 10/05/15 [History] Levothyroxine Sodium [Levothyroxine Sodium] 100 mcg PO DAILY 10/05/15 [History] oxyCODONE HCl [Oxycontin] 10 mg PO TID PRN 10/05/15 [History] Past Medical History HEENT History: Reports: Impaired Vision Other HEENT History: blind in left eye Cardiovascular History: Reports: High Cholesterol, Hypertension Gastrointestinal History: Reports: None Genitourinary History: Reports: Other (See Below) Other Genitourinary History: on flomax for urinary flow Musculoskeletal History: Reports: Arthritis, Back Pain, Chronic, Other (See Below) Other Musculoskeletal History: scoliosis. disc issues Neurological History: Reports: Head Trauma Psychiatric History: Reports: Panic Attack Endocrine/Metabolic History: Reports: Hypothyroidism, IDDM Hematologic History: Reports: Anemia - Infectious Disease History Infectious Disease History: Reports: Hepatitis C - Past Surgical History HEENT Surgical History: Reports: None Cardiovascular Surgical History: Reports: None GI Surgical History: Reports: Cholecystectomy, Colonoscopy Endocrine Surgical History: Reports: None Neurological Surgical History: Reports: None Musculoskeletal Surgical History: Reports: None Social & Family History - Family History Family Medical History: Noncontributory - Tobacco Use Smoking Status *Q: Former Smoker Years of Tobacco use: 40 Packs/Tins Daily: 1 Used Tobacco, but Quit: Yes Month Tobacco Last Used: 10 Second Hand Smoke Exposure: No - Caffeine Use Caffeine Use: Reports: Coffee, Soda - Alcohol Use Days Per Week of Alcohol Use: 0 - Recreational Drug Use Recreational Drug Use: Yes Drug Use in Last 12 Months: Yes Recreational Drug Type: Reports: Marijuana/Hashish Review of Systems - Review of Systems Review Of Systems: See Below Constitutional: Denies: Fever Eyes: Denies: Vision Change Ears: Denies: Dizziness Nose: Denies: Epistaxis Mouth/Throat: Denies: Bleeding Respiratory: Denies: Shortness of Breath Cardiovascular: Denies: Chest Pain, Syncope GI/Abdominal: Denies: Abdominal Pain, Constipation, Diarrhea, Nausea, Vomiting Genitourinary: Reports: No Symptoms Musculoskeletal: Reports: Back Pain (chronic) Skin: Denies: Cyanosis, Jaundice, Mottled, Pallor, Diaphoresis Neurological: Denies: Confusion, Dizziness, Syncope Psychiatric: Denies: Confusion ED EXAM, GENERAL - Physical Exam Exam: See Below Exam Limited By: No Limitations General Appearance: Alert, WD/WN, No Apparent Distress Eye Exam: Bilateral Eye: EOMI, Normal Inspection, PERRL Ears: Normal External Exam, Hearing Grossly Normal Nose: Normal Inspection, No Blood Throat/Mouth: Normal Inspection, Normal Lips, Normal Voice, No Airway Compromise Head: Atraumatic, Normocephalic Respiratory/Chest: No Respiratory Distress, Lungs Clear, Normal Breath Sounds Cardiovascular: Regular Rate, Rhythm, No Murmur Extremities: Leg Pain (right lateral hip), Limited Range of Motion (somewhat limited due to painful tight muscles.), Other (Patient stood and walked a few steps slowly but complains of right lateral hip pain.) Neurological: Alert, Oriented, Normal Cognition, No Motor/Sensory Deficits Psychiatric: Normal Affect, Normal Mood Skin Exam: Warm, Dry, Intact, Normal Color, No Rash Course - Vital Signs Last Recorded V/S: Last Vital Signs Temp 96.6 F 07/04/17 09:59 Pulse 51 L 07/04/17 09:59 Resp 18 07/04/17 09:59 BP 136/71 07/04/17 09:59 Pulse Ox 98 07/04/17 09:59 - Orders/Labs/Meds Orders: Active Orders 24 hr Category Date Time Status Hip Min 2V or 3V Rt [CR] Stat Exams 07/04/17 10:17 Taken Ketorolac [Toradol] Med 07/04/17 11:18 Once 60 mg IM ONETIME ONE - Re-Assessments/Exams Free Text/Narrative Re-Assessment/Exam: 07/04/17 11:25 Xrays show no evidence of dislocation or other pathology. We discussed his history of broken pain medication contracts, being fired from the practices of multiple providers in [facility], being fired from PT, being instructed to not come to this hospital except for a life-threatening emergency. Pt states that he could barely drive here and driving to [place], where his PCP is, would have been too difficult. He also says he can't take Ibuprofen because it has caused ulcers in the past. He denies any current or recent ulcers. Toradol worked great for him two days ago. I informed him that it cannot be used very long or very frequently. Since he has only had it once in recent months will use it today but not again in the near future. Pt agrees to this. 07/04/17 11:32 Following the Toradol injection, patient was discharged in stable condition. Departure - Departure Time of Disposition: 11:30 Disposition: Home, Self-Care 01 Condition: Good Clinical Impression: Right hip pain - Discharge Information Referrals: Beck Eng PA [Primary Care Provider] - Additional Instructions: 1. Take your home medications as directed. 2. Avoid use of Ibuprofen for 24 hours following the Toadol. 3. Follow up with your PCP in 1-2 days. - My Orders Last 24 Hours: My Active Orders 07/04/17 10:17 Hip Min 2V or 3V Rt [CR] Stat 07/04/17 11:18 Ketorolac [Toradol] 60 mg IM ONETIME ONE - Assessment/Plan Last 24 Hours: My Active Orders 07/04/17 10:17 Hip Min 2V or 3V Rt [CR] Stat 07/04/17 11:18 Ketorolac [Toradol] 60 mg IM ONETIME ONE
== END 2017-07-04 11:40 | disposition home or self-care (01) ==
LOC: KA.ED 09:53
DX: M25.551 Pain in right hip (principal); H54.7 Unspecified visual loss; E78.00 Pure hypercholesterolemia, unspecified; I10 Essential (primary) hypertension; E11.9 Type 2 diabetes mellitus without complications; E03.9 Hypothyroidism, unspecified; Z90.49 Acquired absence of other specified parts of digestive tract; Z79.899 Other long term (current) drug therapy; Z79.4 Long term (current) use of insulin; Z87.891 Personal history of nicotine dependence
CPT/HCPCS: 73502; 96372; 99283; J1885

== ENCOUNTER 2017-07-18 10:46 | Emergency (ER) | payer MEDICARE, MEDICAID ==
--- NOTE | 2017-07-18 12:05 | EDM.PDOC ---
ED HPI GENERAL MEDICAL PROBLEM - General Stated Complaint: abscess on face Time Seen by Provider: 07/18/17 11:04 Source of Information: Reports: Patient History Limitations: Reports: No Limitations - History of Present Illness INITIAL COMMENTS - FREE TEXT/NARRATIVE: Patient presents with a red, swollen, tender sore on his left upper cheek. This started about 5 days ago after he thinks he scratched it on the frame of his Michele while he was working on it. It came to a head a couple days ago and he squeezed some bloody discharge from it but not much. No fever. No history of MRSA. - Related Data Allergies Allergy/AdvReac Type Severity Reaction Status Date / Time No Known Drug Allergies Allergy Other Verified 07/09/17 14:53 Home Meds: Home Meds Insulin Detemir [Levemir] 34 units SQ BEDTIME 02/18/14 [History] Insulin Regular, Human [NovoLIN R] 5 units SQ TIDMEALS PRN 02/18/14 [History] Lisinopril [Prinivil] 20 mg PO DAILY 02/18/14 [History] Diazepam 20 mg PO BEDTIME PRN 10/05/15 [History] Gemfibrozil 600 mg PO BIDAC 10/05/15 [History] Levothyroxine Sodium 100 mcg PO DAILY 10/05/15 [History] oxyCODONE HCl [Oxycontin] 10 mg PO TID PRN 10/05/15 [History] Past Medical History HEENT History: Reports: Impaired Vision Other HEENT History: blind in left eye Cardiovascular History: Reports: High Cholesterol, Hypertension Gastrointestinal History: Reports: None Genitourinary History: Reports: Other (See Below) Other Genitourinary History: on flomax for urinary flow Musculoskeletal History: Reports: Arthritis, Back Pain, Chronic, Other (See Below) Other Musculoskeletal History: scoliosis. disc issues Neurological History: Reports: Head Trauma Psychiatric History: Reports: Panic Attack Endocrine/Metabolic History: Reports: Hypothyroidism, IDDM Hematologic History: Reports: Anemia - Infectious Disease History Infectious Disease History: Reports: Hepatitis C - Past Surgical History HEENT Surgical History: Reports: None Cardiovascular Surgical History: Reports: None GI Surgical History: Reports: Cholecystectomy, Colonoscopy Endocrine Surgical History: Reports: None Neurological Surgical History: Reports: None Musculoskeletal Surgical History: Reports: None Social & Family History - Family History Family Medical History: Noncontributory - Tobacco Use Smoking Status *Q: Former Smoker Years of Tobacco use: 40 Packs/Tins Daily: 1 Used Tobacco, but Quit: Yes Month Tobacco Last Used: unknown Second Hand Smoke Exposure: No - Caffeine Use Caffeine Use: Reports: Coffee, Soda - Alcohol Use Days Per Week of Alcohol Use: 0 - Recreational Drug Use Recreational Drug Use: Yes Drug Use in Last 12 Months: Yes Recreational Drug Type: Reports: Marijuana/Hashish ED ROS GENERAL - Review of Systems Review Of Systems: See Below Constitutional: Denies: Fever, Chills, Malaise, Weakness HEENT: Denies: Throat Pain, Vision Change Respiratory: Denies: Shortness of Breath, Cough Cardiovascular: Denies: Chest Pain, Lightheadedness, Syncope GI/Abdominal: Denies: Abdominal Pain, Nausea, Vomiting : Reports: No Symptoms Musculoskeletal: Denies: Neck Pain Skin: Denies: Cyanosis, Jaundice, Mottled, Pallor, Diaphoresis Neurological: Denies: Confusion, Dizziness, Headache, Syncope Psychiatric: Denies: Agitation, Anxiety, Confusion ED EXAM, SKIN/RASH Exam: See Below Exam Limited By: No Limitations General Appearance: Alert, WD/WN, No Apparent Distress Eye Exam: Bilateral Eye: EOMI, Normal Inspection, PERRL Ears: Normal External Exam, Hearing Grossly Normal Nose: Normal Inspection, No Blood Throat/Mouth: Normal Inspection, Normal Lips, Normal Voice, No Airway Compromise Head: Atraumatic, Normocephalic, Other (On the left lateral upper cheek there is a 2x2 cm annular red slightly raised lesion with induration. It is not overtly fluctuant but after cleansing thoroughly with alcohol and opening with an 18-ga needle I was able to express a moderate amount of purulent discharge. This was carefully swabbed for culture and covered with a band-aid.) Neck: Normal Inspection, Full Range of Motion Respiratory/Chest: No Respiratory Distress, Lungs Clear GI/Abdominal: No Distention Neurological: Alert, Oriented, Normal Cognition Psychiatric: Normal Affect, Normal Mood Skin: Warm, Dry, Intact, Normal Color, No Rash Course - Re-Assessments/Exams Free Text/Narrative Re-Assessment/Exam: 07/18/17 12:13 Discussed findings and treatment plan with patient. Will treat with Keflex for 10 days and follow up in a week with his PCP; but recheck HELEN if worsening. Patient discharged in stable condition. Departure - Departure Time of Disposition: 11:21 Disposition: Home, Self-Care 01 Condition: Good Clinical Impression: Pyogenic skin abscess due to bacteria - Discharge Information Instructions: Abscess Referrals: Beck Eng PA [Primary Care Provider] - Additional Instructions: 1. Take the antibiotic as directed. 2. Follow up with your PCP in one week, but recheck HELEN if worsening. 3. Drink 8 cups of water daily.
[2017-07-18 12:17] VITALS: BP 177/93
== END 2017-07-18 11:40 | disposition home or self-care (01) ==
LOC: KA.ED 10:46
DX: L02.01 Cutaneous abscess of face (principal); B96.89 Other specified bacterial agents as the cause of diseases classified elsewhere; I10 Essential (primary) hypertension; M19.90 Unspecified osteoarthritis, unspecified site; E03.9 Hypothyroidism, unspecified; E11.9 Type 2 diabetes mellitus without complications; E78.00 Pure hypercholesterolemia, unspecified; Z79.4 Long term (current) use of insulin; Z79.899 Other long term (current) drug therapy; Z86.19 Personal history of other infectious and parasitic diseases; Z86.79 Personal history of other diseases of the circulatory system; Z87.891 Personal history of nicotine dependence
CPT/HCPCS: 87070; 87077; 87186; 99283

== ENCOUNTER 2017-08-01 09:34 | Emergency (ER) | payer MEDICARE, MEDICAID ==
[2017-08-01] MEDS ORDERED: HYDROmorphone 1 MG/ML Syringe IVPUSH ONE (10:04)
[2017-08-01] MEDS ORDERED: Sodium Chloride 0.9% 1,000 ML IV ONE (10:04)
[2017-08-01] MEDS ORDERED: Ondansetron 4 MG/2 ML SDV IVPUSH ONE (10:04)
[2017-08-01] MEDS ORDERED: Sodium Chloride 0.9% 50 ML SDV FLUSH ONE (10:21)
[2017-08-01] MEDS ORDERED: Iopamidol 612 MG/ML 75 ML Bottle IV PRN (10:21)
[2017-08-01 10:43] LABS: CHLORIDE,CL 104 mmol/L (98-115); SODIUM,NA 138 mmol/L (136-145)
--- NOTE | 2017-08-01 10:46 | EDM.PDOC ---
ED HPI GENERAL MEDICAL PROBLEM - General Chief Complaint: Abdominal Pain Stated Complaint: abdominal pain Time Seen by Provider: 08/01/17 10:05 Source of Information: Reports: Patient History Limitations: Reports: No Limitations - History of Present Illness INITIAL COMMENTS - FREE TEXT/NARRATIVE: 62 YO WM presents to ER with abdominal pain x 5 days. Pt reports he started antibiotics 2 weeks ago (keflex/septra) for abscess on his face. Pt began having diarrhea and nausea 5 days ago with lower abdominal pain. Pt denies any fever/chills or vomiting. Pt states he's having multiple watery stools and feels dehydrated. Pt states he's been unable to eat due to GI symptoms. Duration: Day(s): (5) Location: Reports: Abdomen Quality: Reports: Ache Severity: Moderate Improves with: Reports: None Worsens with: Reports: None Associated Symptoms: Reports: Loss of Appetite, Malaise, Nausea/Vomiting. Denies: Fever/Chills, Shortness of Breath - Related Data Allergies Allergy/AdvReac Type Severity Reaction Status Date / Time No Known Drug Allergies Allergy Other Verified 07/18/17 12:17 Home Meds: Home Meds Insulin Detemir [Levemir] 34 units SQ BEDTIME 02/18/14 [History] Insulin Regular, Human [NovoLIN R] 5 units SQ TIDMEALS PRN 02/18/14 [History] Lisinopril [Prinivil] 20 mg PO DAILY 02/18/14 [History] Diazepam 20 mg PO BEDTIME PRN 10/05/15 [History] Gemfibrozil 600 mg PO BIDAC 10/05/15 [History] Levothyroxine Sodium 100 mcg PO DAILY 10/05/15 [History] oxyCODONE HCl [Oxycontin] 10 mg PO DAILY PRN 10/05/15 [History] Ciprofloxacin HCl [Cipro] 500 mg PO BID #20 tablet 08/01/17 [Rx] Ondansetron [Zofran ODT] 4 mg PO Q6H #10 tab.dis 08/01/17 [Rx] Sulfamethoxazole/Trimethoprim [Sulfamethoxazole-Tmp Ds Tablet] 1 tab PO BID [History] metroNIDAZOLE [Flagyl] 500 mg PO Q6HR #40 tablet 08/01/17 [Rx] Past Medical History HEENT History: Reports: Impaired Vision Other HEENT History: blind in left eye Cardiovascular History: Reports: High Cholesterol, Hypertension Gastrointestinal History: Reports: None Genitourinary History: Reports: Other (See Below) Other Genitourinary History: on flomax for urinary flow Musculoskeletal History: Reports: Arthritis, Back Pain, Chronic, Other (See Below) Other Musculoskeletal History: scoliosis. disc issues Neurological History: Reports: Head Trauma Psychiatric History: Reports: Panic Attack Endocrine/Metabolic History: Reports: Hypothyroidism, IDDM Hematologic History: Reports: Anemia - Infectious Disease History Infectious Disease History: Reports: Hepatitis C - Past Surgical History HEENT Surgical History: Reports: None Cardiovascular Surgical History: Reports: None GI Surgical History: Reports: Cholecystectomy, Colonoscopy Endocrine Surgical History: Reports: None Neurological Surgical History: Reports: None Musculoskeletal Surgical History: Reports: None Social & Family History - Family History Family Medical History: Noncontributory - Tobacco Use Smoking Status *Q: Former Smoker Years of Tobacco use: 40 Packs/Tins Daily: 1 Used Tobacco, but Quit: Yes Month Tobacco Last Used: unknown Second Hand Smoke Exposure: No - Caffeine Use Caffeine Use: Reports: Coffee, Soda - Alcohol Use Days Per Week of Alcohol Use: 0 - Recreational Drug Use Recreational Drug Use: Yes Drug Use in Last 12 Months: Yes Recreational Drug Type: Reports: Marijuana/Hashish ED ROS GENERAL - Review of Systems Review Of Systems: See Below Constitutional: Reports: No Symptoms HEENT: Reports: No Symptoms Respiratory: Reports: No Symptoms Cardiovascular: Reports: No Symptoms Endocrine: Reports: No Symptoms GI/Abdominal: Reports: Abdominal Pain, Diarrhea, Nausea. Denies: Black Stool, Bloody Stool, Hematemesis, Hematochezia, Melena, Vomiting : Reports: No Symptoms Musculoskeletal: Reports: No Symptoms Skin: Reports: No Symptoms Neurological: Reports: No Symptoms Psychiatric: Reports: No Symptoms Hematologic/Lymphatic: Reports: No Symptoms Immunologic: Reports: No Symptoms ED EXAM, GI/ABD - Physical Exam Exam: See Below Exam Limited By: No Limitations General Appearance: Alert, WD/WN, No Apparent Distress Head: Atraumatic, Normocephalic Neck: Normal Inspection, Supple, Non-Tender, Full Range of Motion Respiratory/Chest: No Respiratory Distress, Lungs Clear, Normal Breath Sounds, No Accessory Muscle Use, Chest Non-Tender Cardiovascular: Normal Peripheral Pulses, Regular Rate, Rhythm, No Edema, No Gallop, No JVD, No Murmur, No Rub GI/Abdominal Exam: Normal Bowel Sounds, Soft, No Organomegaly, No Distention, No Abnormal Bruit, No Mass, Pelvis Stable, Tender (bilateral lower abdominal tenderness) Back Exam: Normal Inspection, Full Range of Motion, NT Extremities: Normal Inspection, Normal Range of Motion, Non-Tender, Normal Capillary Refill, No Pedal Edema Neurological: Alert, Oriented, CN II-XII Intact, Normal Cognition, Normal Gait, Normal Reflexes, No Motor/Sensory Deficits Psychiatric: Normal Affect, Normal Mood, Anxious Skin Exam: Warm, Dry, Intact, Normal Color, No Rash Lymphatic: No Adenopathy EKG INTERPRETATION EKG Date: 08/01/17 Time: 10:25 Rhythm: NSR Rate (Beats/Min): 64 [place]: Normal P-Wave: Present QRS: Normal ST-T: Normal QT: Normal Comparison: NA - No Prior EKG Course - Vital Signs Last Recorded V/S: Last Vital Signs Temp 37.1 C 08/01/17 09:45 Pulse 73 08/01/17 09:45 Resp 18 08/01/17 09:45 BP 169/100 H 08/01/17 09:45 Pulse Ox 96 08/01/17 09:45 - Orders/Labs/Meds Orders: Active Orders 24 hr Category Date Time Status EKG Documentation Completion [RC] ASDIRECTED Care 08/01/17 10:05 Active Abdomen Pelvis w Cont [CT] Stat Exams 08/01/17 10:04 Ordered UA W/MICROSCOPIC [URIN] Stat Lab 08/01/17 10:04 Uncollected Iopamidol [Isovue-300 (61%)] Med 08/01/17 10:21 Active 75 ml IV . DIRECTED PRN EKG 12 Lead [EK] Routine Ther 08/01/17 10:04 Ordered Medication Orders Iopamidol (Isovue-300 (61%)) 75 ml IV . DIRECTED PRN PRN Reason: FOR RADIOLOGY EXAM Labs: Laboratory Tests 08/01/17 08/01/17 08/01/17 Range/Units 09:49 10:00 10:00 WBC 6.0 (5.0-10.0) 10^3/uL RBC 4.66 (4.50-6.00) 10^6/uL Hgb 14.5 (13.0-17.0) g/dL Hct 43.0 (40.0-52.0) % MCV 92.2 H (82.0-92.0) fL MCH 31.1 H (27.0-31.0) pg MCHC 33.7 (32.0-36.0) g/dL RDW 13.3 (11.5-14.5) % Plt Count 170 (150-300) 10^3/uL MPV 8.9 (7.4-10.4) fL Neut % (Auto) 55.1 (50.0-70.0) % Lymph % (Auto) 23.3 (20.0-40.0) % [place] % (Auto) 12.0 H (2.0-8.0) % Eos % (Auto) 8.6 H (1.0-3.0) % Baso % (Auto) 1.0 (0.0-1.0) % Neut # (Auto) 3.3 (2.5-7.0) 10^3/uL Lymph # (Auto) 1.4 (1.0-4.0) 10^3/uL [place] # (Auto) 0.7 (0.1-0.8) 10^3/uL Eos # (Auto) 0.5 H (0.1-0.3) 10^3/uL Baso # (Auto) 0.1 (0.0-0.1) 10^3/uL Sodium 138 (136-145) mmol/L Potassium 4.2 (3.3-5.3) mmol/L Chloride 104 (98-115) mmol/L Carbon Dioxide 18.6 L (21.0-32.0) mmol/L BUN 25 (6-25) mg/dL Creatinine 1.02 (0.51-1.17) mg/dL Est Cr Clr Drug Dosing TNP Estimated GFR (MDRD) > 60 mL/min Glucose 179 H (70-110) mg/dL POC Glucose 175 H (74-106) mg/dl Calcium 9.2 (8.7-10.3) mg/dL Total Bilirubin 0.8 (0.2-1.0) mg/dL AST 110 H (15-37) U/L ALT 240 H (12-78) U/L Alkaline Phosphatase 599 H (46-116) IU/L Total Protein 8.2 (6.4-8.2) g/dL Albumin 3.90 (3.00-4.80) g/dL Lipase 76 (73-393) U/L Urine Color (YELLOW) Urine Appearance (CLEAR) Urine pH (5.0-9.0) Ur Specific [place] (1.005-1.030) Urine Protein (NEGATIVE) mg/dL Urine Glucose (UA) (NEGATIVE) mg/dL Urine Ketones (NEGATIVE) mg/dL Urine Occult Blood (NEGATIVE) Urine Nitrite (NEGATIVE) Urine Bilirubin (NEGATIVE) Urine Urobilinogen (0.2-1.0) E.U./dL Ur Leukocyte Esterase (NEGATIVE) 08/01/17 Range/Units 11:35 WBC (5.0-10.0) 10^3/uL RBC (4.50-6.00) 10^6/uL Hgb (13.0-17.0) g/dL Hct (40.0-52.0) % MCV (82.0-92.0) fL MCH (27.0-31.0) pg MCHC (32.0-36.0) g/dL RDW (11.5-14.5) % Plt Count (150-300) 10^3/uL MPV (7.4-10.4) fL Neut % (Auto) (50.0-70.0) % Lymph % (Auto) (20.0-40.0) % [place] % (Auto) (2.0-8.0) % Eos % (Auto) (1.0-3.0) % Baso % (Auto) (0.0-1.0) % Neut # (Auto) (2.5-7.0) 10^3/uL Lymph # (Auto) (1.0-4.0) 10^3/uL [place] # (Auto) (0.1-0.8) 10^3/uL Eos # (Auto) (0.1-0.3) 10^3/uL Baso # (Auto) (0.0-0.1) 10^3/uL Sodium (136-145) mmol/L Potassium (3.3-5.3) mmol/L Chloride (98-115) mmol/L Carbon Dioxide (21.0-32.0) mmol/L BUN (6-25) mg/dL Creatinine (0.51-1.17) mg/dL Est Cr Clr Drug Dosing Estimated GFR (MDRD) mL/min Glucose (70-110) mg/dL POC Glucose (74-106) mg/dl Calcium (8.7-10.3) mg/dL Total Bilirubin (0.2-1.0) mg/dL AST (15-37) U/L ALT (12-78) U/L Alkaline Phosphatase (46-116) IU/L Total Protein (6.4-8.2) g/dL Albumin (3.00-4.80) g/dL Lipase (73-393) U/L Urine Color Yellow (YELLOW) Urine Appearance Slightly cloudy H (CLEAR) Urine pH 5.5 (5.0-9.0) Ur Specific [place] 1.020 (1.005-1.030) Urine Protein Negative (NEGATIVE) mg/dL Urine Glucose (UA) Negative (NEGATIVE) mg/dL Urine Ketones 15 H (NEGATIVE) mg/dL Urine Occult Blood Moderate H (NEGATIVE) Urine Nitrite Negative (NEGATIVE) Urine Bilirubin Negative (NEGATIVE) Urine Urobilinogen 0.2 (0.2-1.0) E.U./dL Ur Leukocyte Esterase Negative (NEGATIVE) Meds: Medications Generic Name Dose Route Start Last Admin Trade Name Freq PRN Reason Stop Dose Admin Iopamidol 75 ml 08/01/17 10:21 Isovue-300 (61%) IV . DIRECTED PRN FOR RADIOLOGY EXAM Discontinued Medications Generic Name Dose Route Start Last Admin Trade Name Freq PRN Reason Stop Dose Admin Hydromorphone HCl 1 mg 08/01/17 10:04 08/01/17 10:27 Dilaudid IVPUSH 08/01/17 10:05 1 mg ONETIME ONE Administration Sodium Chloride 1,000 mls @ 999 mls/hr 08/01/17 10:04 08/01/17 10:15 Normal Saline IV 08/01/17 11:04 999 mls/hr .BOLUS ONE Administration Ondansetron HCl 4 mg 08/01/17 10:04 08/01/17 10:23 Zofran IVPUSH 08/01/17 10:05 4 mg ONETIME ONE Administration Sodium Chloride 50 ml 08/01/17 10:21 Normal Saline FLUSH 08/01/17 10:22 ONETIME ONE - Radiology Interpretation Free Text/Narrative:: CT abd/Pelvis- minimal thickening of decending colon; no evidence of C Diff Departure - Departure Time of Disposition: 11:58 Disposition: Home, Self-Care 01 Condition: Fair Clinical Impression: Colitis Abdominal pain Qualifiers: Abdominal location: lower abdomen, unspecified Qualified Code(s): R10.30 - Lower abdominal pain, unspecified - Discharge Information Prescriptions: metroNIDAZOLE [Flagyl] 500 mg PO Q6HR #40 tablet Ciprofloxacin HCl [Cipro] 500 mg PO BID #20 tablet Ondansetron [Zofran ODT] 4 mg PO Q6H #10 tab.dis Instructions: Diarrhea, Adult, Nausea, Adult, Abdominal Pain, Adult, Easy-to- Read Referrals: Beck Eng PA [Primary Care Provider] - Forms: ED Department Discharge - My Orders Last 24 Hours: My Active Orders 08/01/17 10:04 Abdomen Pelvis w Cont [CT] Stat UA W/MICROSCOPIC [URIN] Stat EKG 12 Lead [EK] Routine 08/01/17 10:05 EKG Documentation Completion [RC] ASDIRECTED 08/01/17 10:21 Iopamidol [Isovue-300 (61%)] 75 ml IV . DIRECTED PRN - Assessment/Plan Last 24 Hours: My Active Orders 08/01/17 10:04 Abdomen Pelvis w Cont [CT] Stat UA W/MICROSCOPIC [URIN] Stat EKG 12 Lead [EK] Routine 08/01/17 10:05 EKG Documentation Completion [RC] ASDIRECTED 08/01/17 10:21 Iopamidol [Isovue-300 (61%)] 75 ml IV . DIRECTED PRN Assessment:: 1. abdominal pain 2. early colitis Plan: 1. flagyl/cipro 2. zofran 4mg ODT Q6 PRN 3. push fluids 4. follow up with PCP in [place] in 48 hours for recheck 5. return to ER for worsening symptoms 6. discharge home- discussed 23 obs but patient wants to go home
[2017-08-01 13:38] VITALS: BP 155/80
== END 2017-08-01 12:25 | disposition home or self-care (01) ==
LOC: KA.ED 09:34
DX: K52.9 Noninfective gastroenteritis and colitis, unspecified (principal); E78.00 Pure hypercholesterolemia, unspecified; I10 Essential (primary) hypertension; M19.90 Unspecified osteoarthritis, unspecified site; E03.9 Hypothyroidism, unspecified; E11.9 Type 2 diabetes mellitus without complications; Z86.19 Personal history of other infectious and parasitic diseases; Z90.49 Acquired absence of other specified parts of digestive tract; Z79.4 Long term (current) use of insulin; Z79.899 Other long term (current) drug therapy; Z87.891 Personal history of nicotine dependence
CPT/HCPCS: 74177; 80053; 81001; 82962; 83690; 85025; 93005; 96361; 96374; 96375; 99284; J1170; J2405; J7030; Q9967

== ENCOUNTER 2017-09-04 14:39 | Emergency (ER) | payer MEDICARE, MEDICAID ==
[2017-09-04 15:22] VITALS: BP 162/95
[2017-09-04] MEDS ORDERED: cefTRIAXone 1 GM Vial IM ONE (15:25)
--- NOTE | 2017-09-04 15:32 | EDM.PDOC ---
ED HPI GENERAL MEDICAL PROBLEM - General Chief Complaint: ENT Problem Stated Complaint: NOSE INFECTED?? Time Seen by Provider: 09/04/17 15:24 Source of Information: Reports: Patient History Limitations: Reports: No Limitations - History of Present Illness INITIAL COMMENTS - FREE TEXT/NARRATIVE: PT STATES HE DEVELOPED REDNESS, SWELLING, AND PAIN IN THE LEFT NOSTRIL AND TIP OF NOSE OVER PAST FEW DAYS. STATES HE PICKED SCAP AND PULLED OUT HAIR. DENIES TRAUMA, FEVER, MICHAEL, OR SINUS PAIN Onset: Gradual Duration: Day(s): Location: Reports: Face Quality: Reports: Burning Severity: Mild Improves with: Reports: None Worsens with: Reports: None Associated Symptoms: Reports: No Other Symptoms - Related Data Allergies Allergy/AdvReac Type Severity Reaction Status Date / Time No Known Drug Allergies Allergy Other Verified 07/18/17 12:17 Home Meds: Home Meds Insulin Detemir [Levemir] 34 units SQ BEDTIME 02/18/14 [History] Insulin Regular, Human [NovoLIN R] 5 units SQ TIDMEALS PRN 02/18/14 [History] Lisinopril [Prinivil] 20 mg PO DAILY 02/18/14 [History] Diazepam 20 mg PO BEDTIME PRN 10/05/15 [History] Gemfibrozil 600 mg PO BIDAC 10/05/15 [History] Levothyroxine Sodium 100 mcg PO DAILY 10/05/15 [History] oxyCODONE HCl [Oxycontin] 10 mg PO DAILY PRN 10/05/15 [History] Ciprofloxacin HCl [Cipro] 500 mg PO BID #20 tablet 08/01/17 [Rx] Ondansetron [Zofran ODT] 4 mg PO Q6H #10 tab.dis 08/01/17 [Rx] Sulfamethoxazole/Trimethoprim [Sulfamethoxazole-Tmp Ds Tablet] 1 tab PO BID [History] metroNIDAZOLE [Flagyl] 500 mg PO Q6HR #40 tablet 08/01/17 [Rx] Cephalexin [Keflex] 500 mg PO TID #30 cap 09/04/17 [Rx] Past Medical History HEENT History: Reports: Impaired Vision Other HEENT History: blind in left eye Cardiovascular History: Reports: High Cholesterol, Hypertension Gastrointestinal History: Reports: None Genitourinary History: Reports: Other (See Below) Other Genitourinary History: on flomax for urinary flow Musculoskeletal History: Reports: Arthritis, Back Pain, Chronic, Other (See Below) Other Musculoskeletal History: scoliosis. disc issues Neurological History: Reports: Head Trauma Psychiatric History: Reports: Panic Attack Endocrine/Metabolic History: Reports: Hypothyroidism, IDDM Hematologic History: Reports: Anemia - Infectious Disease History Infectious Disease History: Reports: Hepatitis C - Past Surgical History HEENT Surgical History: Reports: None Cardiovascular Surgical History: Reports: None GI Surgical History: Reports: Cholecystectomy, Colonoscopy Endocrine Surgical History: Reports: None Neurological Surgical History: Reports: None Musculoskeletal Surgical History: Reports: None Social & Family History - Family History Family Medical History: Noncontributory - Tobacco Use Smoking Status *Q: Former Smoker Years of Tobacco use: 40 Packs/Tins Daily: 1 Used Tobacco, but Quit: Yes Month Tobacco Last Used: unknown Second Hand Smoke Exposure: No - Caffeine Use Caffeine Use: Reports: Coffee, Soda - Alcohol Use Days Per Week of Alcohol Use: 0 - Recreational Drug Use Recreational Drug Use: Yes Drug Use in Last 12 Months: Yes Recreational Drug Type: Reports: Marijuana/Hashish ED ROS GENERAL - Review of Systems Review Of Systems: ROS reveals no pertinent complaints other than HPI. Constitutional: Reports: No Symptoms HEENT: Reports: Nose Pain, Other (SWELLING AND REDNESS OF NOSE) Respiratory: Reports: No Symptoms Cardiovascular: Reports: No Symptoms Endocrine: Reports: No Symptoms GI/Abdominal: Reports: No Symptoms : Reports: No Symptoms Musculoskeletal: Reports: No Symptoms Skin: Reports: Other (REDNESS OF NOSE) Psychiatric: Reports: No Symptoms Hematologic/Lymphatic: Reports: No Symptoms Immunologic: Reports: No Symptoms ED EXAM, SKIN/RASH Exam: See Below Exam Limited By: No Limitations General Appearance: Alert, WD/WN, No Apparent Distress Eye Exam: Bilateral Eye: Normal Inspection Nose: Nasal Swelling, Other (LEFT NARE ERYTHEMA AND EDEMA. SMALL EXCORIATION WITH SUSPECTED EARLY ABSCESS FORMATION. NO SEPTUM INVOLVEMENT ) Head: Atraumatic, Normocephalic Neck: Normal Inspection, Supple. No: Lymphadenopathy (L), Lymphadenopathy (R) Respiratory/Chest: No Respiratory Distress Neurological: Alert, Oriented, Normal Cognition Psychiatric: Normal Affect, Normal Mood Skin: Warm, Dry, Intact, Normal Color, No Rash Location, Skin: Face Characteristics: Erythematous Associated features: Tenderness, Swelling Lymphatic: No Adenopathy Course - Vital Signs Last Recorded V/S: Last Vital Signs Temp 99.1 F 09/04/17 15:10 Pulse 88 09/04/17 15:10 Resp 16 09/04/17 15:10 BP 162/95 H 09/04/17 15:10 Pulse Ox 96 09/04/17 15:10 - Orders/Labs/Meds Orders: Active Orders 24 hr Category Date Time Status Mupirocin Oint [Bactroban Oint] Med 09/04/17 15:30 Active 1 gm TOP TID Medication Orders Mupirocin (Bactroban Oint) 1 gm TOP TID NELSON Meds: Medications Generic Name Dose Route Start Last Admin Trade Name Freq PRN Reason Stop Dose Admin Mupirocin 1 gm 09/04/17 15:30 Bactroban Oint TOP TID NELSON Discontinued Medications Generic Name Dose Route Start Last Admin Trade Name Freq PRN Reason Stop Dose Admin Ceftriaxone Sodium 1 gm 09/04/17 15:25 Rocephin IM 09/04/17 15:26 ONETIME ONE - Re-Assessments/Exams Free Text/Narrative Re-Assessment/Exam: 09/04/17 15:31 PT AFEBRILE, NONTOXIC APPEARING, VSS. GIVEN BACTROBAN AND ROCEPHIN HERE. HAD INTESTINAL REACTION TO BACTRIM PREVIOUSLY SO RX FOR KEFLEX GIVEN. Departure - Departure Time of Disposition: 15:32 Disposition: Home, Self-Care 01 Condition: Good Clinical Impression: Facial cellulitis - Discharge Information Prescriptions: Cephalexin [Keflex] 500 mg PO TID #30 cap Instructions: Cellulitis, Adult, [id number], Abscess, [id number] Referrals: Beck Eng PA [Primary Care Provider] - Additional Instructions: FOLLOW UP WITH PCP IN 2 DAYS. RETURN TO ER SOONER IF SYMPTOMS CONTINUE - My Orders Last 24 Hours: My Active Orders 09/04/17 15:30 Mupirocin Oint [Bactroban Oint] 1 gm TOP TID - Assessment/Plan Last 24 Hours: My Active Orders 09/04/17 15:30 Mupirocin Oint [Bactroban Oint] 1 gm TOP TID Assessment:: FACIAL CELLULITIS Plan: RECHECK IN 2 DAYS
[2017-09-04] MEDS: Mupirocin Oint 22 GM Tube TOP SCH ×2 (15:40→15:50)
== END 2017-09-04 15:50 | disposition home or self-care (01) ==
LOC: KA.ED 14:39
DX: L03.211 Cellulitis of face (principal); I10 Essential (primary) hypertension; Z79.4 Long term (current) use of insulin; Z79.899 Other long term (current) drug therapy; Z87.891 Personal history of nicotine dependence
CPT/HCPCS: 96372; 99283; A9270; J0696

== ENCOUNTER 2017-12-14 14:09 | Emergency (ER) | payer MEDICARE, MEDICAID ==
[2017-12-14 14:31] VITALS: BP 144/82
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
== END 2017-12-14 15:05 | disposition home or self-care (01) ==
LOC: KA.ED 14:09
DX: S01.511A Laceration without foreign body of lip, initial encounter (principal); M54.2 Cervicalgia; R07.0 Pain in throat; I10 Essential (primary) hypertension; E78.00 Pure hypercholesterolemia, unspecified; E03.9 Hypothyroidism, unspecified; F41.0 Panic disorder [episodic paroxysmal anxiety]; Z87.891 Personal history of nicotine dependence; Z79.899 Other long term (current) drug therapy; Z79.4 Long term (current) use of insulin; Z79.891 Long term (current) use of opiate analgesic; Y04.0XXA Assault by unarmed brawl or fight, initial encounter
CPT/HCPCS: 99282

== ENCOUNTER 2017-12-23 13:48 | Emergency (ER) | payer OTHER, MEDICAID ==
[2017-12-23 14:07] VITALS: BP 181/73
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
== END 2017-12-23 16:10 | disposition home or self-care (01) ==
LOC: KA.ED 13:48
DX: S01.81XA Laceration without foreign body of other part of head, initial encounter (principal); S09.90XA Unspecified injury of head, initial encounter; E78.00 Pure hypercholesterolemia, unspecified; I10 Essential (primary) hypertension; E03.9 Hypothyroidism, unspecified; Z79.899 Other long term (current) drug therapy; V59.49XA Driver of pick-up truck or van injured in collision with other motor vehicles in traffic accident, initial encounter
CPT/HCPCS: 70450; 99284

== ENCOUNTER 2018-03-30 11:42 | Emergency (ER) | payer MEDICARE, MEDICAID ==
--- NOTE | 2018-03-30 12:10 | EDM.PDOC ---
ED HPI GENERAL MEDICAL PROBLEM - General Chief Complaint: Back Pain or Injury Stated Complaint: Back pain and hypertension Time Seen by Provider: 03/30/18 11:51 Source of Information: Reports: Patient History Limitations: Reports: No Limitations - History of Present Illness INITIAL COMMENTS - FREE TEXT/NARRATIVE: Patient is a 63-year-old gentleman who presents to the emergency Department this morning with a complaint of low back pain secondary to fall out of bed last evening, and hypertension noticed this morning, systolic above 200. Patient is status post lumbar surgery 3 weeks ago. Blood pressure taken with single BP monitor on singlearm and not confirmed. Patient admits to not adhering to medication regimen. He states he often forgets his medication. Patient is on lisinopril, OxyContin, and insulin for diabetic control. Patient also has a strong history of noncompliant diabetic control. 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) Lower Back Pain Score (Numeric/FACES): 4 - Related Data Allergies Allergy/AdvReac Type Severity Reaction Status Date / Time No Known Drug Allergies Allergy Other Verified 03/30/18 11:54 Home Meds: Home Meds Insulin Detemir [Levemir] 34 units SQ BEDTIME 02/18/14 [History] Insulin Regular, Human [NovoLIN R] 5 units SQ TIDMEALS 02/18/14 [History] Lisinopril [Prinivil] 20 mg PO DAILY 02/18/14 [History] Diazepam 20 mg PO BEDTIME PRN 10/05/15 [History] Levothyroxine Sodium 100 mcg PO DAILY 10/05/15 [History] oxyCODONE HCl [Oxycontin] 10 mg PO DAILY PRN 10/05/15 [History] Cyclobenzaprine [Flexeril] 10 mg PO TID PRN 03/30/18 [History] Ibuprofen [Motrin] 600 mg PO BIDM 03/30/18 [History] oxyCODONE ER [OxyCONTIN] 10 mg PO BEDTIME 03/30/18 [History] Past Medical History HEENT History: Reports: Impaired Vision Other HEENT History: blind in left eye Cardiovascular History: Reports: High Cholesterol, Hypertension Gastrointestinal History: Reports: None Genitourinary History: Reports: Other (See Below) Other Genitourinary History: on flomax for urinary flow Musculoskeletal History: Reports: Arthritis, Back Pain, Chronic, Other (See Below) Other Musculoskeletal History: scoliosis. disc issues Neurological History: Reports: Head Trauma Psychiatric History: Reports: Panic Attack Endocrine/Metabolic History: Reports: Hypothyroidism, IDDM Hematologic History: Reports: Anemia - Infectious Disease History Infectious Disease History: Reports: Hepatitis C - Past Surgical History HEENT Surgical History: Reports: None Cardiovascular Surgical History: Reports: None GI Surgical History: Reports: Cholecystectomy, Colonoscopy Endocrine Surgical History: Reports: None Neurological Surgical History: Reports: None Musculoskeletal Surgical History: Reports: None Social & Family History - Family History Family Medical History: Noncontributory - Caffeine Use Caffeine Use: Reports: Coffee, Soda ED ROS GENERAL - Review of Systems Review Of Systems: ROS reveals no pertinent complaints other than HPI. Constitutional: Reports: No Symptoms HEENT: Reports: No Symptoms Respiratory: Reports: No Symptoms Cardiovascular: Reports: No Symptoms Endocrine: Reports: No Symptoms GI/Abdominal: Reports: No Symptoms : Reports: No Symptoms Musculoskeletal: Reports: Back Pain (Exacerbation of chronic condition.) Skin: Reports: No Symptoms Neurological: Reports: No Symptoms Psychiatric: Reports: No Symptoms Hematologic/Lymphatic: Reports: No Symptoms Immunologic: Reports: No Symptoms ED EXAM, GENERAL - Physical Exam Exam: See Below Exam Limited By: No Limitations General Appearance: Alert, WD/WN, No Apparent Distress Throat/Mouth: Normal Inspection, Normal Oropharynx, No Airway Compromise Head: Atraumatic, Normocephalic Neck: Normal Inspection, Supple, Non-Tender, Full Range of Motion Respiratory/Chest: No Respiratory Distress, Lungs Clear, Normal Breath Sounds, No Accessory Muscle Use, Chest Non-Tender Cardiovascular: Regular Rate, Rhythm, No Murmur GI/Abdominal: Normal Bowel Sounds, Soft, Non-Tender, No Organomegaly Back Exam: Paraspinal Tenderness (Bilateral). No: CVA Tenderness (L), CVA Tenderness (R) Extremities: Normal Inspection, Normal Range of Motion, Non-Tender, No Pedal Edema Neurological: Alert, Oriented, Normal Cognition, No Motor/Sensory Deficits Psychiatric: Normal Affect, Normal Mood Skin Exam: Warm, Dry, Intact, Normal Color, No Rash Course - Vital Signs Last Recorded V/S: Last Vital Signs Temp 98.8 F 03/30/18 11:47 Pulse 77 03/30/18 11:47 Resp 20 03/30/18 11:47 BP 169/86 H 03/30/18 11:47 Pulse Ox 97 03/30/18 11:47 - Re-Assessments/Exams Free Text/Narrative Re-Assessment/Exam: 03/30/18 13:01 Patient afebrile, nontoxic appearing, vital signs stable, pain control. Patient will take lisinopril 20 mg in the morning. will document blood pressure twice a day to be evaluated at next scheduled appointment at clinic. Departure - Departure Time of Disposition: 13:03 Disposition: Home, Self-Care 01 Condition: Good Clinical Impression: Chronic low back pain Qualifiers: Back pain laterality: unspecified Sciatica presence: with sciatica Sciatica laterality: bilateral sciatica Qualified Code(s): M54.41 - Lumbago with sciatica , right side; M54.42 - Lumbago with sciatica, left side; G89.29 - Other chronic pain Hypertension Qualifiers: Hypertension type: unspecified Qualified Code(s): I10 - Essential (primary) hypertension Instructions: How to Take Your Blood Pressure, [id number], Back Pain, Adult, [id number], Hypertension, [id number] Referrals: PCP,Unknown [Primary Care Provider] - Forms: ED Department Discharge Additional Instructions: Follow-up with the primary care provider in the next 3-5 days. Complete record of blood pressure taken twice a day. Continue current medication as directed. Return to emergency department sooner if symptoms continue or worsen - Assessment/Plan Assessment:: Low back pain, hypertension Plan: Follow-up at clinic in the next 2-3 days.
[2018-03-30 12:27] VITALS: BP 173/91
[2018-03-30] MEDS: Acetaminophen/oxyCODONE 325-5 MG Tab PO ONE (12:44)
[2018-03-30] MEDS: Ketorolac 60 MG/2 ML SDV IM ONE (12:45)
== END 2018-03-30 13:15 | disposition home or self-care (01) ==
LOC: KA.ED 11:42
DX: M54.42 Lumbago with sciatica, left side (principal); M54.41 Lumbago with sciatica, right side; I10 Essential (primary) hypertension; E11.9 Type 2 diabetes mellitus without complications; E03.9 Hypothyroidism, unspecified; Z79.4 Long term (current) use of insulin; Z79.899 Other long term (current) drug therapy
CPT/HCPCS: 72100; 96372; 99283; A9270-GY; J1885

== ENCOUNTER 2018-12-13 12:53 | Emergency (ER) | payer MEDICARE, MEDICAID ==
--- NOTE | 2018-12-13 13:44 | EDM.PDOC ---
ED HPI GENERAL MEDICAL PROBLEM - General Chief Complaint: Back Pain or Injury Stated Complaint: SEVERE PX IN UPPER BACK AND LEGS Time Seen by Provider: 12/13/18 13:35 Source of Information: Reports: Patient History Limitations: Reports: No Limitations - History of Present Illness INITIAL COMMENTS - FREE TEXT/NARRATIVE: Patient is a 63-year-old gentleman who presents to the emergency department this afternoon with a complaint of neck and bilateral shoulder pain. Patient states a few days ago, he accidentally fell backwards landing on upper back. Since then, he said he has a lot of pain in his neck and bilateral posterior shoulders. Patient also has chronic low back pain, pain has not changed after fall, and feels he did not injure low back in the fall. Patient denies head injury, loss of consciousness, headache, chest pain, shortness of breath, abdominal pain, nausea or vomiting. Onset: Sudden Duration: Day(s): Location: Reports: Neck, Back Quality: Reports: Ache Severity: Moderate Improves with: Reports: Medication Worsens with: Reports: Movement Associated Symptoms: Reports: No Other Symptoms Bilateral Arm Pain Score (Numeric/FACES): 10 - Related Data Allergies Allergy/AdvReac Type Severity Reaction Status Date / Time No Known Drug Allergies Allergy Other Verified 12/13/18 13:18 Home Meds: Home Meds Insulin Detemir [Levemir] 22 units SQ BEDTIME 02/18/14 [History] Insulin Regular, Human [NovoLIN R] 5 units SQ TIDMEALS 02/18/14 [History] Lisinopril [Prinivil] 20 mg PO DAILY 02/18/14 [History] Levothyroxine Sodium 100 mcg PO DAILY 10/05/15 [History] diazePAM [Diazepam] 20 mg PO BEDTIME PRN 10/05/15 [History] oxyCODONE HCl [Oxycontin] 20 mg PO DAILY PRN 10/05/15 [History] Cyclobenzaprine [Flexeril] 10 mg PO TID PRN 03/30/18 [History] Ibuprofen [Motrin] 600 mg PO BIDM 03/30/18 [History] oxyCODONE ER [OxyCONTIN] 10 mg PO BEDTIME 03/30/18 [History] Past Medical History HEENT History: Reports: Impaired Vision Other HEENT History: blind in left eye Cardiovascular History: Reports: High Cholesterol, Hypertension Respiratory History: Reports: Other (See Below) Other Respiratory History: daily smoker Gastrointestinal History: Reports: None Genitourinary History: Reports: Other (See Below) Other Genitourinary History: on flomax for urinary flow Musculoskeletal History: Reports: Arthritis, Back Pain, Chronic, Other (See Below) Other Musculoskeletal History: scoliosis. disc issues Neurological History: Reports: Head Trauma Psychiatric History: Reports: Panic Attack Endocrine/Metabolic History: Reports: Hypothyroidism, IDDM Hematologic History: Reports: Anemia - Infectious Disease History Infectious Disease History: Reports: Hepatitis C - Past Surgical History HEENT Surgical History: Reports: None Cardiovascular Surgical History: Reports: None Respiratory Surgical History: Reports: None GI Surgical History: Reports: Cholecystectomy, Colonoscopy Male Surgical History: Reports: None Endocrine Surgical History: Reports: None Neurological Surgical History: Reports: None Musculoskeletal Surgical History: Reports: None Social & Family History - Family History Family Medical History: Noncontributory - Tobacco Use Smoking Status *Q: Current Every Day Smoker Years of Tobacco use: 40 Packs/Tins Daily: 0.2 Used Tobacco, but Quit: No Second Hand Smoke Exposure: No - Caffeine Use Caffeine Use: Reports: Coffee, Soda - Recreational Drug Use Recreational Drug Use: No ED ROS GENERAL - Review of Systems Review Of Systems: ROS reveals no pertinent complaints other than HPI. Constitutional: Reports: No Symptoms HEENT: Reports: No Symptoms Respiratory: Reports: No Symptoms Cardiovascular: Reports: No Symptoms Endocrine: Reports: No Symptoms GI/Abdominal: Reports: No Symptoms : Reports: No Symptoms Musculoskeletal: Reports: Neck Pain, Back Pain (Upper) Skin: Reports: No Symptoms Neurological: Reports: No Symptoms Psychiatric: Reports: No Symptoms Hematologic/Lymphatic: Reports: No Symptoms Immunologic: Reports: No Symptoms ED EXAM, UPPER BACK/NECK PAIN - Physical Exam Exam: See Below Exam Limited By: No Limitations General Appearance: Alert, WD/WN, Mild Distress Eye Exam: Bilateral Eye: Normal Inspection Nose Exam: Normal Inspection, No Blood Throat/Mouth Exam: Normal Inspection, Normal Oropharynx, No Airway Compromise Head Exam: Atraumatic, Normocephalic Neck Exam: Limited Range of Motion, Muscle Spasm, Painful Range of Motion, Paraspinous Muscle Tender, Stiff Neck, Tender Lateral. No: Abnormal Alignment, Spinous Processes Tender, Tender Midline Nexus Criteria: No: Posterior, Midline Cervical Tenderness, Evidence of Intoxication, Altered Level of Consciousness, Focal Neurological Deficit, Painful Distraction Injuries Cardiovascular/Respiratory: Regular Rate, Rhythm, Normal Peripheral Pulses, Normal Breath Sounds, No Respiratory Distress GI/Abdominal: Normal Bowel Sounds, Soft, Non-Tender Back Exam: Decreased Range of Motion (Of chronic nature\), Other (Bilateral scapular discomfort on palpation. No erythema, ecchymosis or crepitus noted. No lateral shoulder tenderness to palpation.). No: CVA Tenderness (L), CVA Tenderness (R), Paraspinal Tenderness, Vertebral Tenderness Extremities: Normal Inspection, No Pedal Edema, Normal Capillary Refill Neurologic: No Motor/Sensory Deficits, Alert, Normal Mood/Affect, Oriented x 3 Psychiatric: Normal Affect, Normal Mood Skin Exam: Normal Color, Warm/Dry Lymphatic: No Adenopathy Course - Vital Signs Last Recorded V/S: Last Vital Signs Temp 99 F 12/13/18 13:01 Pulse 81 12/13/18 13:01 Resp 14 12/13/18 13:01 BP 185/111 H 12/13/18 13:01 Pulse Ox 97 12/13/18 13:01 - Orders/Labs/Meds Orders: Active Orders 24 hr Category Date Time Status Cervical Spine 2V or 3V [CR] Stat Exams 12/13/18 13:37 Ordered Scapula Bi [CR] Stat Exams 12/13/18 13:37 Ordered Meds: Medications Discontinued Medications Generic Name Dose Route Start Last Admin Trade Name Freq PRN Reason Stop Dose Admin Diazepam 5 mg 12/13/18 13:36 Valium. PO 12/13/18 13:37 ONETIME ONE Oxycodone/Acetaminophen 1 tab 12/13/18 13:36 Percocet 325-5 Mg PO 12/13/18 13:37 ONETIME ONE - Radiology Interpretation Free Text/Narrative:: X-rays of neck showed degenerative process, no acute fracture or subluxation, and bilateral scapula show no acute fracture - Re-Assessments/Exams Free Text/Narrative Re-Assessment/Exam: 12/13/18 14:57 Patient afebrile, appears nontoxic, and good relief from Valium and Percocet. MRI of left shoulder to rule out ligamentous injury. Scheduled for tomorrow. Patient will follow-up with PCP. Hypertension addressed with patient. Patient states he is taking his medication, but often gets white coat hypertension. Patient denies any chest pain, shortness of breath, headache, nausea, or blurry vision. 12/13/18 15:01 Departure - Departure Time of Disposition: 14:58 Disposition: Home, Self-Care 01 Condition: Good Clinical Impression: Chronic back pain greater than 3 months duration, Other cervical disc degeneration, unspecified cervical region Shoulder pain, left Qualifiers: Chronicity: acute Qualified Code(s): M25.512 - Pain in left shoulder - Discharge Information Instructions: Muscle Strain, [id number], Heat Therapy, [id number], Back Pain, Adult, [id number], Degenerative Disk Disease, Shoulder Pain Referrals: Beck Eng PA [Primary Care Provider] - Additional Instructions: Follow-up with PCP in 2-3 days. Return to her swelling sooner if symptoms continue or worsen. MRI scheduled for left shoulder. - My Orders Last 24 Hours: My Active Orders 12/13/18 13:37 Cervical Spine 2V or 3V [CR] Stat Scapula Bi [CR] Stat - Assessment/Plan Last 24 Hours: My Active Orders 12/13/18 13:37 Cervical Spine 2V or 3V [CR] Stat Scapula Bi [CR] Stat Assessment:: Neck and shoulder pain Plan: Follow-up with PCP
[2018-12-13] MEDS: Acetaminophen/oxyCODONE 325-5 MG Tab PO ONE (13:47)
[2018-12-13] MEDS: Diazepam 5 MG Tab PO ONE (13:47)
--- NOTE | 2018-12-13 14:21 | CR ---
[id number] RAD/RAD Cervical Spine 2-3V EXAM: RAD Cervical Spine 2-3V CLINICAL DATA: TRAUMA AND PAIN. COMPARISON: CORRELATION IS MADE WITH THE MRI OF MAY 04, 2012. FINDINGS: No fracture or subluxation is seen. Imaging of C6, C7, T1 is limited despite a swimmer's view. Consider CAT scan if further evaluation is needed. There are degenerative changes. IMPRESSION: NO FRACTURE OR SUBLUXATION SEEN. Tom Duckworth MD 12/13/18 1168 Thank you for allowing us to participate in the care of your patient.
--- NOTE | 2018-12-13 14:32 | CR ---
[id number] RAD/RAD Scapula Left EXAM: 2 VIEWS LEFT SCAPULA. INDICATION: FALL. COMPARISON: None. DISCUSSION: No definite radiographic evidence of acute fracture, dislocation or other acute osseous abnormalities. Old left-sided rib fractures. The visualized lung is clear. IMPRESSION: 1. No definite radiographic evidence of acute left scapular fracture. Alhaji Molina DO 12/13/18 1429 Thank you for allowing us to participate in the care of your patient.
--- NOTE | 2018-12-13 14:33 | CR ---
[id number] RAD/RAD Scapula Right EXAM: 2 VIEWS RIGHT SCAPULA. INDICATION: FALL. COMPARISON: None. DISCUSSION: No definite radiographic evidence of acute fracture, dislocation or other acute osseous abnormalities. The visualized lung is clear. IMPRESSION: 1. No definite radiographic evidence of right scapular fracture. Alhaji Molina DO 12/13/18 2303 Thank you for allowing us to participate in the care of your patient.
[2018-12-13 14:38] VITALS: BP 186/108
[2018-12-14] MEDS: Acetaminophen/oxyCODONE 325-5 MG Tab PO ONE (11:13)
== END 2018-12-13 15:15 | disposition home or self-care (01) ==
LOC: KA.ED 12:53
DX: M50.30 Other cervical disc degeneration, unspecified cervical region (principal); M25.511 Pain in right shoulder; M25.512 Pain in left shoulder; M54.5 Low back pain; G89.29 Other chronic pain; E11.9 Type 2 diabetes mellitus without complications; I10 Essential (primary) hypertension; F17.210 Nicotine dependence, cigarettes, uncomplicated; Z79.4 Long term (current) use of insulin
CPT/HCPCS: 72040; 73010-LT; 73010-RT; 99283; A9270-GY

== ENCOUNTER 2018-12-19 11:06 | Emergency (ER) | payer MEDICARE, MEDICAID ==
[2018-12-19 11:52] VITALS: BP 139/78
--- NOTE | 2018-12-19 12:30 | EDM.PDOC ---
ED HPI GENERAL MEDICAL PROBLEM - General Chief Complaint: Back Pain or Injury Stated Complaint: SEVERE NECK/SHOULDER PAIN Time Seen by Provider: 12/19/18 11:49 Source of Information: Reports: Patient History Limitations: Reports: No Limitations - History of Present Illness INITIAL COMMENTS - FREE TEXT/NARRATIVE: Patient presents with pain primarily in shoulders but also down both arms and both legs and low back. All of this is chronic but the left shoulder is the most recent and bothersome today he says. He tells me up front that he has been under a pain contract with [facility] in [place] for the last 7 years and has weaned down significantly from the levels of Oxycontin he had been on earlier. He is currently taking 10 mg bid. Six days ago he came to ER here and saw Callum Admas with the same pain. Callum ordered an MRI of left shoulder but patient hasn't heard anything back from that. I informed him that the results likely were sent to his PCP in [place] but that we would review them with him here now as well. Patient says he called the [place] [facility] but they were booked up for today so he came in here. He is planning to see them soon though. Callum gave him an Rx for Valium for muscle relaxing and he has paused his Cyclobenzaprine while on Valium. Callum also gave him two Percocet tablets that helped and are now gone. shoulders,neck,arms,legs Pain Score (Numeric/FACES): 10 - Related Data Allergies Allergy/AdvReac Type Severity Reaction Status Date / Time No Known Drug Allergies Allergy Other Verified 12/13/18 13:18 Home Meds: Home Meds Insulin Detemir [Levemir] 22 units SQ BEDTIME 02/18/14 [History] Insulin Regular, Human [NovoLIN R] 5 units SQ TIDMEALS 02/18/14 [History] Lisinopril [Prinivil] 20 mg PO DAILY 02/18/14 [History] Levothyroxine Sodium 100 mcg PO DAILY 10/05/15 [History] diazePAM [Diazepam] 20 mg PO BEDTIME PRN 10/05/15 [History] oxyCODONE HCl [Oxycontin] 20 mg PO DAILY PRN 10/05/15 [History] Cyclobenzaprine [Flexeril] 10 mg PO TID PRN 03/30/18 [History] Ibuprofen [Motrin] 600 mg PO BIDM 03/30/18 [History] oxyCODONE ER [OxyCONTIN] 10 mg PO BEDTIME 03/30/18 [History] Past Medical History HEENT History: Reports: Impaired Vision Other HEENT History: blind in left eye Cardiovascular History: Reports: High Cholesterol, Hypertension Respiratory History: Reports: Other (See Below) Other Respiratory History: daily smoker Gastrointestinal History: Reports: None Genitourinary History: Reports: Other (See Below) Other Genitourinary History: on flomax for urinary flow Musculoskeletal History: Reports: Arthritis, Back Pain, Chronic, Other (See Below) Other Musculoskeletal History: scoliosis. disc issues Neurological History: Reports: Head Trauma Psychiatric History: Reports: Panic Attack Endocrine/Metabolic History: Reports: Hypothyroidism, IDDM Hematologic History: Reports: Anemia - Infectious Disease History Infectious Disease History: Reports: Hepatitis C - Past Surgical History HEENT Surgical History: Reports: None Cardiovascular Surgical History: Reports: None Respiratory Surgical History: Reports: None GI Surgical History: Reports: Cholecystectomy, Colonoscopy Male Surgical History: Reports: None Endocrine Surgical History: Reports: None Neurological Surgical History: Reports: None Musculoskeletal Surgical History: Reports: None Social & Family History - Family History Family Medical History: Noncontributory - Caffeine Use Caffeine Use: Reports: Coffee, Soda Review of Systems - Review of Systems Review Of Systems: See Below Constitutional: Denies: Chills, Fever, Weakness Eyes: Denies: Vision Change Ears: Reports: No Symptoms Nose: Reports: No Symptoms Mouth/Throat: Reports: No Symptoms Respiratory: Reports: No Symptoms Cardiovascular: Denies: Chest Pain, Syncope GI/Abdominal: Denies: Abdominal Pain, Diarrhea, Nausea, Vomiting Genitourinary: Denies: Dysuria, Painful Urination Musculoskeletal: Reports: Neck Pain, Shoulder Pain, Arm Pain, Back Pain, Leg Pain, Muscle Stiffness. Denies: Hand Pain, Foot Pain Skin: Denies: Cyanosis, Jaundice, Mottled, Pallor, Diaphoresis Neurological: Denies: Confusion, Dizziness, Headache, Seizure, Syncope, Difficulty Walking ED EXAM, GENERAL - Physical Exam Exam: See Below Exam Limited By: No Limitations General Appearance: Alert, WD/WN, No Apparent Distress Eye Exam: Bilateral Eye: EOMI, Normal Inspection, PERRL Ears: Normal External Exam, Hearing Grossly Normal Nose: Normal Inspection, No Blood Throat/Mouth: Normal Inspection, Normal Lips, Normal Voice, No Airway Compromise Head: Atraumatic, Normocephalic Neck: Limited Range of Motion (onsly slightly: stiff and sore to touch chin to chest but okay up and side to side), Tender Lateral (trapezius, bilat). No: Tender Midline Respiratory/Chest: No Respiratory Distress, Lungs Clear, Normal Breath Sounds, No Accessory Muscle Use Cardiovascular: Regular Rate, Rhythm, No Murmur GI/Abdominal: Soft, No Distention Back Exam: Normal Inspection. No: Paraspinal Tenderness, Vertebral Tenderness Extremities: Normal Range of Motion (appears quite normal UE and LE. Palpation of shoulders and back reveal minimal muscle spasm except right trapezius.), Other (Initially while showing me the areas and extent of pain in arms he couldn 't raise his arms past chest level, but after exam and discussion of diagnoses and treatment options he was raising arms overhead fairly well without discomfort. He was showing me the exercises he does at home when we discussed PT. ) Neurological: Alert, Oriented, Normal Cognition, No Motor/Sensory Deficits Psychiatric: Normal Affect, Normal Mood Skin Exam: Warm, Dry, Intact, Normal Color, No Rash Course - Vital Signs Last Recorded V/S: Last Vital Signs Temp 97.8 F 12/19/18 11:33 Pulse 85 12/19/18 11:33 Resp 16 12/19/18 11:33 BP 139/78 12/19/18 11:33 Pulse Ox 97 12/19/18 11:33 - Re-Assessments/Exams Free Text/Narrative Re-Assessment/Exam: 12/19/18 12:21 I reviewed the ER note from Callum Adams last week including the MRI he obtained of left shoulder. The MRI shows low-grade tearing of portions of subscapularis but nothing requiring surgery. It also showed low grade strains of supraspinatus, infraspinatus and deltoid muscles. Callum's note indicated significant muscle spasm of trapezius which appears to be responding to the valium he prescribed as there is minimal spasm at this time; mostly at proximal right trap. We discussed findings and treatment options including orthopedic evaluation of his shoulder, neuro evaluation of his back (he is scheduled to see his neurosurgeon next week), PT for the shoulder and back. Since he is currently taking his oxycontin long-term and for the past few days is taking Valium instead of Cyclobenzaprine, I made no changes to the regimen at this time. During our somewhat lengthy visit, patient appeared to become much more relaxed and comfortable, including displaying significantly improved ROM of both arms without apparent discomfort. He is agreeable with the plan as discussed and was discharged to home in stable condition. Departure - Departure Time of Disposition: 12:19 Disposition: Home, Self-Care 01 Condition: Good Clinical Impression: Chronic left shoulder pain, Chronic low back pain, Chronic pain of lower extremity, bilateral - Discharge Information Referrals: PCP,Unknown [Primary Care Provider] - Additional Instructions: 1. Continue your current medications for pain and relaxation. 2. Follow up with your PCP in 1-2 days, or at least this week, for recheck and to set up Physical Therapy and/or orthopedic evaluation.
== END 2018-12-19 12:55 | disposition home or self-care (01) ==
LOC: KA.ED 11:06
DX: M25.512 Pain in left shoulder (principal); M54.5 Low back pain; G89.29 Other chronic pain; F17.210 Nicotine dependence, cigarettes, uncomplicated; E78.00 Pure hypercholesterolemia, unspecified; I10 Essential (primary) hypertension; E03.9 Hypothyroidism, unspecified; Z79.4 Long term (current) use of insulin; Z79.899 Other long term (current) drug therapy
CPT/HCPCS: 99283

== ENCOUNTER 2019-11-05 09:31 | Emergency (ER) | payer MEDICARE, MEDICAID ==
[2019-11-05 09:44] VITALS: BP 121/86; PULSE 99
[2019-11-05 10:55] LABS: ANION GAP 17.6 mmol/L (5-15); CHLORIDE,CL 101 mmol/L (98-115); SODIUM,NA 140 mmol/L (136-145)
--- NOTE | 2019-11-05 11:13 | EDM.PDOC ---
<Otoniel Adams - Last Filed: 11/05/19 11:08> ED HPI GENERAL MEDICAL PROBLEM - General Chief Complaint: General Stated Complaint: Facial swelling Time Seen by Provider: 11/05/19 10:26 Source of Information: Reports: Patient - History of Present Illness INITIAL COMMENTS - FREE TEXT/NARRATIVE: Patient is a 64-year-old gentleman who presents to the emergency department via private vehicle with a complaint of facial swelling. Patient states 4 days ago he plucked a hair with tweezers from right nostril. Woke up the next day with some swelling in his nose, that progressed to the right cheek this morning. Patient denies trauma, fever, headache, neck stiffness, chest pain, shortness of breath, blurry vision, or history of MRSA Onset: Gradual Duration: Day(s): Location: Reports: Face Quality: Reports: Ache Severity: Mild Improves with: Reports: None Worsens with: Reports: None Context: Denies: Trauma Associated Symptoms: Reports: No Other Symptoms. Denies: Fever/Chills Right Face/Facial Pain Score (Numeric/FACES): 7 - Related Data Allergies Allergy/AdvReac Type Severity Reaction Status Date / Time No Known Drug Allergies Allergy Other Verified 11/05/19 09:43 Home Meds: Home Meds Insulin Detemir [Levemir] 30 units SQ BEDTIME 02/18/14 [History] Insulin Regular, Human [NovoLIN R] 5 units SQ TIDMEALS 02/18/14 [History] lisinopriL [Prinivil] 20 mg PO DAILY 02/18/14 [History] diazePAM [Diazepam] 20 mg PO BEDTIME PRN 10/05/15 [History] oxyCODONE HCl [Oxycontin] 20 mg PO DAILY 10/05/15 [History] oxyCODONE ER [OxyCONTIN] 10 mg PO BEDTIME 03/30/18 [History] Citalopram Hydrobromide [Celexa] 30 mg PO DAILY 11/05/19 [History] Levothyroxine Sodium [Synthroid] 112 mcg PO DAILY 11/05/19 [History] Tamsulosin [Flomax] 0.4 mg PO DAILY 11/05/19 [History] Past Medical History HEENT History: Reports: Impaired Vision Other HEENT History: blind in left eye Cardiovascular History: Reports: High Cholesterol, Hypertension Respiratory History: Reports: Other (See Below) Other Respiratory History: daily smoker Gastrointestinal History: Reports: None Genitourinary History: Reports: Other (See Below) Other Genitourinary History: on flomax for urinary flow Musculoskeletal History: Reports: Arthritis, Back Pain, Chronic, Other (See Below) Other Musculoskeletal History: scoliosis. disc issues Neurological History: Reports: Head Trauma Psychiatric History: Reports: Panic Attack Endocrine/Metabolic History: Reports: Hypothyroidism, IDDM Hematologic History: Reports: Anemia - Infectious Disease History Infectious Disease History: Reports: Hepatitis C - Past Surgical History HEENT Surgical History: Reports: None Cardiovascular Surgical History: Reports: None Respiratory Surgical History: Reports: None GI Surgical History: Reports: Cholecystectomy, Colonoscopy Male Surgical History: Reports: None Endocrine Surgical History: Reports: None Neurological Surgical History: Reports: None Musculoskeletal Surgical History: Reports: None Social & Family History - Family History Family Medical History: Noncontributory - Caffeine Use Caffeine Use: Reports: Coffee, Soda ED ROS GENERAL - Review of Systems Review Of Systems: Comprehensive ROS is negative, except as noted in HPI. Constitutional: Reports: No Symptoms HEENT: Reports: Nose Pain Respiratory: Reports: No Symptoms Cardiovascular: Reports: No Symptoms Endocrine: Reports: No Symptoms GI/Abdominal: Reports: No Symptoms : Reports: No Symptoms Musculoskeletal: Reports: No Symptoms Skin: Reports: Other (Edema and erythema of right cheek) Neurological: Reports: No Symptoms Psychiatric: Reports: No Symptoms Hematologic/Lymphatic: Reports: No Symptoms Immunologic: Reports: No Symptoms ED EXAM GENERAL W FULL EYE - Physical Exam Exam: See Below Exam Limited By: No Limitations General Appearance: Alert, WD/WN, No Apparent Distress Eye Exam: Bilateral Eye: Normal Inspection Conjunctiva & Sclera: Bilateral: Normal Appearance Extraocular Movements: Bilateral: Intact Ears: Normal External Exam, Normal Canal, Normal TMs Nose: Nasal Swelling (Right lateral Plasc[place]) Throat/Mouth: Normal Inspection, Normal Lips, Normal Oropharynx, Normal Voice, No Airway Compromise Head: Atraumatic, Normocephalic Neck: Normal Inspection, Supple, Non-Tender. No: Lymphadenopathy (L), Lymphadenopathy (R) Respiratory/Chest: No Respiratory Distress, Lungs Clear, Normal Breath Sounds, No Accessory Muscle Use, Chest Non-Tender Cardiovascular: Regular Rate, Rhythm, No Murmur Extremities: Normal Inspection, No Pedal Edema Neurological: Alert, Oriented, Normal Cognition Psychiatric: Normal Affect, Normal Mood Skin Exam: Warm, Dry, Intact, Normal Color, No Rash, Erythema, Other (Edema of right lateral nose, extending into the maxilla and inferior orbit. Mild erythema. No ocular involvement) Lymphatic: No Adenopathy Course - Vital Signs Last Recorded V/S: Last Vital Signs Temp 36.6 C 11/05/19 09:38 Pulse 99 11/05/19 09:38 Resp 16 11/05/19 09:38 BP 121/86 11/05/19 09:38 Pulse Ox 95 11/05/19 09:38 - Orders/Labs/Meds Labs: Laboratory Tests 11/05/19 Range/Units 10:10 Sodium 140 (136-145) mmol/L Potassium 4.6 (3.3-5.3) mmol/L Chloride 101 (98-115) mmol/L Carbon Dioxide 26.0 (21.0-32.0) mmol/L Anion Gap 17.6 H (5-15) mmol/L BUN 24 (6-25) mg/dL Creatinine 0.95 (0.51-1.17) mg/dL Est Cr Clr Drug Dosing 69.96 mL/min Estimated GFR (MDRD) > 60 mL/min Glucose 134 H (75 - 99) mg/dL Calcium 10.0 (8.7-10.3) mg/dL Meds: Medications Discontinued Medications Generic Name Dose Route Start Last Admin Trade Name Freq PRN Reason Stop Dose Admin Sodium Chloride 50 mls @ 200 mls/min 11/05/19 11:23 11/05/19 11:27 Normal Saline IV 11/05/19 11:24 200 mls/min ONETIME ONE Administration Iopamidol 100 ml 11/05/19 11:23 11/05/19 11:27 Isovue-370 (76%) IV 11/05/19 11:24 75 ml ONETIME ONE Administration - Radiology Interpretation Free Text/Narrative:: CT maxillofacial with contrast shows a 1.4 cm fluid collection within the right nasal superficial soft tissue consistent with an abscess - Re-Assessments/Exams Free Text/Narrative Re-Assessment/Exam: Discussed case with Avinash Razo for transfer of care. Departure - Departure Disposition: DC/Tfer to [facility] 02 Clinical Impression: Nasal abscess - Discharge Information Referrals: Nick,Otoniel M, [employer] [Primary Care Provider] - Forms: ED Department Discharge Sepsis Event Note - Evaluation Sepsis Screening Result: No Definite Risk - Focused Exam Vital Signs: Vital Signs Temp Pulse Resp BP Pulse Ox 11/05/19 09:38 36.6 C 99 16 121/86 95 Date Exam was Performed: 11/05/19 Time Exam was Performed: 11:08 <Avinash Razo - Last Filed: 11/05/19 12:36> Departure - Departure Time of Disposition: 12:36 Condition: Good - Discharge Information *PRESCRIPTION DRUG MONITORING PROGRAM REVIEWED*: Not Applicable *COPY OF PRESCRIPTION DRUG MONITORING REPORT IN PATIENT SHAMAR: Not Applicable Sepsis Event Note - Focused Exam Date Exam was Performed: 11/05/19 Time Exam was Performed: 12:33 - Problem List & Annotations (1) Nasal abscess SNOMED Code(s): 0598066 Code(s): J34.0 - ABSCESS, FURUNCLE AND CARBUNCLE OF NOSE Status: Acute Priority: High Current Visit: Yes - Problem List Review Problem List Initiated/Reviewed/Updated: Yes - Assessment/Plan Plan: Contact [facility] 1 call, Dr. Sharma, excepting after discussion with ENT Dr. Cruz or transfer via private vehicle for continuity of care and further ENT evaluation. Patient will hand carry paperwork, CT has been pushed to [facility].
[2019-11-05] MEDS: Iopamidol 755 Mg/ML 100 ML Bottle IV ONE (11:27)
[2019-11-05] MEDS: Sodium Chloride 0.9% 50 ML IV ONE (11:27)
--- NOTE | 2019-11-05 11:44 | CT ---
[id number] CT/CT Sinus W IV EXAM: SINUS CT WITHOUT CONTRAST INDICATION: RULE OUT ABSCESS UNDER RIGHT EYE AND RIGHT SIDE OF COMPARISON: None DISCUSSION: There is a 0.9 x 1.2 x 1.4 cm fluid collection within the right nasal superficial soft tissues. This is consistent with an abscess. There is no bony involvement. No definite preseptal cellulitis. The paranasal sinuses are normally aerated without mucosal thickening, fluid or osseous changes identified. The nasal septum is midline. The sphenoid ostia and ostiomeatal units are patent. IMPRESSION: 1. 1.4 cm fluid collection within the right nasal superficial soft tissues consistent with an abscess. Alhaji Molina DO 11/05/19 1143 Thank you for allowing us to participate in the care of your patient.
== END 2019-11-05 12:40 ==
LOC: KA.ED 09:31
DX: J32.9 Chronic sinusitis, unspecified (principal); I10 Essential (primary) hypertension; E11.9 Type 2 diabetes mellitus without complications; E78.00 Pure hypercholesterolemia, unspecified; M19.90 Unspecified osteoarthritis, unspecified site; F41.0 Panic disorder [episodic paroxysmal anxiety]; E03.9 Hypothyroidism, unspecified; F17.200 Nicotine dependence, unspecified, uncomplicated; Z79.4 Long term (current) use of insulin; Z79.899 Other long term (current) drug therapy
CPT/HCPCS: 70487; 80048; 99284; 99284-25; J7050; Q9967

== ENCOUNTER 2020-05-01 16:40 | Emergency (ER) | payer MEDICARE, MEDICAID ==
[2020-05-01 16:47] VITALS: BP 149/84; PULSE 84
[2020-05-01] MEDS: Sodium Chloride 0.9% 10 ML Syringe FLUSH PRN (17:23)
--- NOTE | 2020-05-01 17:31 | CR ---
[id number] RAD/RAD Chest PA or AP 1V EXAM: FRONTAL CHEST INDICATION: NOT FEELING WELL. COMPARISON: September 13, 2018. DISCUSSION: The heart and lungs are normal in appearance. Chronic bilateral rib fractures have not appreciably changed. IMPRESSION: 1. Negative exam. Oswald Ohara MD 05/01/20 4610 Thank you for allowing us to participate in the care of your patient.
--- NOTE | 2020-05-01 17:39 | EDM.PDOC ---
ED HPI GENERAL MEDICAL PROBLEM - General Chief Complaint: Gastrointestinal Problem Stated Complaint: NOT FEELING WELL Time Seen by Provider: 05/01/20 17:31 Source of Information: Reports: Patient History Limitations: Reports: No Limitations - History of Present Illness INITIAL COMMENTS - FREE TEXT/NARRATIVE: Patient is a 65-year-old gentleman who presents to the emergency department this evening via private vehicle with a complaint of abdominal pain and just not feeling well. Patient states that the abdominal discomfort has been chronic and is described as twisting. However, today he's had multiple episodes of vomiting and diarrhea. Patient states immediately after he consumes food or fluid, He vomits it up. He states that there is no blood in the stool. Patient does have a history of [id number] diabetes. Patient denies out of country travel, change in food or medicine, chest pain, shortness of breath, pain to lower extremities, history of abdominal aneurysm, fever, or out of area travel. Onset: Gradual Duration: Chronic Location: Reports: Abdomen Quality: Reports: Pressure Severity: Mild Improves with: Reports: None Worsens with: Reports: Eating Context: Denies: Trauma Associated Symptoms: Reports: Nausea/Vomiting Lower Abdominal Pain Score (Numeric/FACES): 7 - Related Data Allergies Allergy/AdvReac Type Severity Reaction Status Date / Time No Known Drug Allergies Allergy Other Verified 05/01/20 16:46 Home Meds: Home Meds Insulin Detemir [Levemir] 30 units SQ BEDTIME 02/18/14 [History] Insulin Regular, Human [NovoLIN R] 5 units SQ TIDMEALS 02/18/14 [History] lisinopriL [Prinivil] 20 mg PO DAILY 02/18/14 [History] diazePAM [Diazepam] 20 mg PO BEDTIME PRN 10/05/15 [History] oxyCODONE HCl [Oxycontin] 20 mg PO DAILY 10/05/15 [History] oxyCODONE ER [OxyCONTIN] 10 mg PO BEDTIME 03/30/18 [History] Citalopram Hydrobromide [Celexa] 30 mg PO DAILY 11/05/19 [History] Levothyroxine Sodium [Synthroid] 112 mcg PO DAILY 11/05/19 [History] Tamsulosin [Flomax] 0.4 mg PO DAILY 11/05/19 [History] Ciprofloxacin HCl [Cipro] 500 mg PO BID #14 tablet 05/01/20 [Rx] Metoprolol Succinate 50 mg PO DAILY 05/01/20 [History] atorvaSTATin [Lipitor] 10 mg PO DAILY 05/01/20 [History] metroNIDAZOLE [Flagyl] 500 mg PO BID #14 tablet 05/01/20 [Rx] sulfaSALAzine 1,000 mg PO BID 05/01/20 [History] Past Medical History HEENT History: Reports: Impaired Vision Other HEENT History: blind in left eye Cardiovascular History: Reports: High Cholesterol, Hypertension Respiratory History: Reports: Other (See Below) Other Respiratory History: daily smoker Gastrointestinal History: Reports: None Genitourinary History: Reports: Retention, Urinary, Other (See Below) Other Genitourinary History: on flomax for urinary flow Musculoskeletal History: Reports: Arthritis, Back Pain, Chronic, Other (See Below) Other Musculoskeletal History: scoliosis. disc issues Neurological History: Reports: Head Trauma Psychiatric History: Reports: Depression, Panic Attack Endocrine/Metabolic History: Reports: Hypothyroidism, IDDM Hematologic History: Reports: Anemia - Infectious Disease History Infectious Disease History: Reports: Hepatitis C - Past Surgical History Head Surgeries/Procedures: Reports: None HEENT Surgical History: Reports: None Cardiovascular Surgical History: Reports: None Respiratory Surgical History: Reports: None GI Surgical History: Reports: Cholecystectomy, Colonoscopy Male Surgical History: Reports: None Endocrine Surgical History: Reports: None Neurological Surgical History: Reports: None Musculoskeletal Surgical History: Reports: None Social & Family History - Family History Family Medical History: Noncontributory - Caffeine Use Caffeine Use: Reports: Coffee, Soda ED ROS GENERAL - Review of Systems Review Of Systems: Comprehensive ROS is negative, except as noted in HPI. Constitutional: Reports: No Symptoms HEENT: Reports: No Symptoms Respiratory: Reports: No Symptoms Cardiovascular: Reports: No Symptoms Endocrine: Reports: No Symptoms GI/Abdominal: Reports: Abdominal Pain, Nausea, Vomiting : Reports: No Symptoms Musculoskeletal: Reports: No Symptoms Skin: Reports: No Symptoms Neurological: Reports: No Symptoms Psychiatric: Reports: No Symptoms Hematologic/Lymphatic: Reports: No Symptoms Immunologic: Reports: No Symptoms ED EXAM, GI/ABD - Physical Exam Exam: See Below Exam Limited By: No Limitations General Appearance: Alert, WD/WN, No Apparent Distress Nose: Normal Inspection, No Blood Throat/Mouth: Normal Inspection, Normal Oropharynx, No Airway Compromise Head: Atraumatic, Normocephalic Neck: Normal Inspection Respiratory/Chest: No Respiratory Distress, Lungs Clear, Normal Breath Sounds, No Accessory Muscle Use, Chest Non-Tender Cardiovascular: Regular Rate, Rhythm, Diastolic Murmur GI/Abdominal Exam: Normal Bowel Sounds, Soft, Tender (Diffuse), Other (Pulsatile abdominal aorta without bruit) Back Exam: Normal Inspection. No: CVA Tenderness (L), CVA Tenderness (R) Extremities: Normal Inspection, Non-Tender, No Pedal Edema, Normal Capillary Refill Neurological: Alert, Oriented, Normal Cognition Psychiatric: Normal Affect, Normal Mood Skin Exam: Warm, Dry, Intact, Normal Color, No Rash Lymphatic: No Adenopathy Course - Vital Signs Last Recorded V/S: Last Vital Signs Temp 98.1 F 05/01/20 16:41 Pulse 84 05/01/20 16:41 Resp 16 05/01/20 16:41 BP 149/84 H 05/01/20 16:41 Pulse Ox 95 05/01/20 16:41 - Orders/Labs/Meds Orders: Active Orders 24 hr Category Date Time Status EKG Documentation Completion [RC] ASDIRECTED Care 05/01/20 16:59 Active Peripheral IV Care [RC] . DIRECTED Care 05/01/20 16:59 Active Sodium Chloride 0.9% [Normal Saline] 1,000 ml Med 05/01/20 17:46 Active IV .BOLUS Sodium Chloride 0.9% [Normal Saline] 50 ml Med 05/01/20 17:45 Active IV ASDIRECTED Sodium Chloride 0.9% [Saline Flush] Med 05/01/20 16:58 Active 10 ml FLUSH Q8HR PRN Peripheral IV Insertion Adult [OM.PC] Routine Oth 05/01/20 16:58 Ordered EKG 12 Lead [EK] Stat Ther 05/01/20 16:58 Ordered Medication Orders Sodium Chloride (Normal Saline) 50 mls @ 200 mls/min IV ASDIRECTED NELSON Last Admin: 05/01/20 18:02 Dose: 200 mls/min Documented by: AMADOU Sodium Chloride (Normal Saline) 1,000 mls @ 999 mls/hr IV .BOLUS ONE Stop: 05/01/20 18:46 Last Admin: 05/01/20 17:58 Dose: 999 mls/hr Documented by: BRITTANI Sodium Chloride (Saline Flush) 10 ml FLUSH Q8HR PRN PRN Reason: keep vein open Last Admin: 05/01/20 17:23 Dose: 10 ml Documented by: BRITTANI Labs: Laboratory Tests 05/01/20 05/01/20 05/01/20 Range/Units 17:14 17:14 17:20 WBC 10.40 H (5.00-10.00) 10^3/uL RBC 4.54 (4.50-6.00) 10^6/uL Hgb 14.4 (13.0-17.0) g/dL Hct 42.4 (40.0-52.0) % MCV 93.4 H (82.0-92.0) fL MCH 31.7 H (27.0-31.0) pg MCHC 34.0 (32.0-36.0) g/dL RDW 14.1 (11.5-14.5) % Plt Count 218 (150-400) 10^3/uL MPV 10.6 H (7.4-10.4) fL Immature Gran % (Auto) 0.3 (0.0-5.0) % Neut % (Auto) 74.9 H (50.0-70.0) % Lymph % (Auto) 17.9 L (20.0-40.0) % [place] % (Auto) 5.6 (2.0-8.0) % Eos % (Auto) 0.8 L (1.0-3.0) % Baso % (Auto) 0.5 (0.0-1.0) % Neut # (Auto) 7.80 H (2.50-7.00) 10^3/uL Lymph # (Auto) 1.86 (1.00-4.00) 10^3/uL [place] # (Auto) 0.58 (0.10-0.80) 10^3/uL Eos # (Auto) 0.08 L (0.10-0.30) 10^3/uL Baso # (Auto) 0.05 (0.00-0.10) 10^3/uL Immature Gran # (Auto) 0.03 (0.00-0.50) 10^3/uL Sodium 137 (136-145) mmol/L Potassium 4.6 (3.3-5.3) mmol/L Chloride 100 (98-115) mmol/L Carbon Dioxide 25.4 (21.0-32.0) mmol/L Anion Gap 16.2 H (5-15) mmol/L BUN 20 (6-25) mg/dL Creatinine 0.81 (0.51-1.17) mg/dL Est Cr Clr Drug Dosing 80.95 mL/min Estimated GFR (MDRD) > 60 mL/min Glucose 221 H (75 - 99) mg/dL Calcium 9.2 (8.7-10.3) mg/dL Total Bilirubin 0.6 (0.2-1.0) mg/dL AST 22 (15-37) U/L ALT 27 (12-78) U/L Alkaline Phosphatase 130 H (46-116) IU/L Total Protein 7.6 (6.4-8.2) g/dL Albumin 3.54 (3.00-4.80) g/dL Specimen Type Urinvoid Urine Color Yellow (YELLOW) Urine Appearance Clear (CLEAR) Urine pH 6.0 (5.0-9.0) Ur Specific [place] 1.025 (1.005-1.030) Urine Protein 30 H (NEGATIVE) mg/dL Urine Glucose (UA) 100 H (NEGATIVE) mg/dL Urine Ketones 40 H (NEGATIVE) mg/dL Urine Occult Blood Trace-lysed H (NEGATIVE) Urine Nitrite Negative (NEGATIVE) Urine Bilirubin Small H (NEGATIVE) Urine Urobilinogen 0.2 (0.2-1.0) E.U./dL Ur Leukocyte Esterase Negative (NEGATIVE) Urine RBC 10-20 H (0-5) /HPF Urine WBC 0-5 (0-5) /HPF Ur Epithelial Cells Few /LPF Urine Bacteria Few (NONE TO FEW) /HPF Meds: Medications Generic Name Dose Route Start Last Admin Trade Name Freq PRN Reason Stop Dose Admin Sodium Chloride 50 mls @ 200 mls/min 05/01/20 17:45 05/01/20 18:02 Normal Saline IV 200 mls/min ASDIRECTED NELSON Administration Sodium Chloride 1,000 mls @ 999 mls/hr 05/01/20 17:46 05/01/20 17:58 Normal Saline IV 05/01/20 18:46 999 mls/hr .BOLUS ONE Administration Sodium Chloride 10 ml 05/01/20 16:58 05/01/20 17:23 Saline Flush FLUSH 10 ml Q8HR PRN Administration keep vein open Discontinued Medications Generic Name Dose Route Start Last Admin Trade Name Masood PRN Reason Stop Dose Admin Ciprofloxacin 500 mg 05/01/20 18:30 Ciprofloxacin Hcl PO 05/01/20 18:31 ONETIME ONE Iopamidol 100 ml 05/01/20 17:33 05/01/20 18:02 Isovue-370 (76%) IV 05/01/20 17:34 75 ml ONETIME ONE Administration Metronidazole 500 mg 05/01/20 18:30 Flagyl PO 05/01/20 18:31 ONETIME ONE Ondansetron HCl 4 mg 05/01/20 18:31 Zofran Odt PO 05/01/20 18:32 ONETIME ONE Ondansetron HCl 8 mg 05/01/20 18:32 Zofran Odt PO 05/01/20 18:33 ONETIME ONE - Radiology Interpretation Free Text/Narrative:: CT abdomen and pelvis with IV contrast shows early colitis. Chest x-ray shows no acute cardiopulmonary process - Re-Assessments/Exams Free Text/Narrative Re-Assessment/Exam: 05/01/20 18:35 Patient afebrile, vital signs stable, nontoxic appearing, taking by mouth fluids. Patient given Cipro and Flagyl in the ER and a prescription. Patient will follow-up at clinic Departure - Departure Time of Disposition: 18:36 Disposition: Home, Self-Care 01 Condition: Good Clinical Impression: Vomiting, Colitis - Discharge Information Prescriptions: Ciprofloxacin HCl [Cipro] 500 mg PO BID #14 tablet metroNIDAZOLE [Flagyl] 500 mg PO BID #14 tablet Instructions: Nausea and Vomiting, Adult, [id number], Colitis Referrals: PCP,None [Primary Care Provider] - Forms: ED Department Discharge Additional Instructions: Follow-up with PCP in next 1-2 days. Return to emergency department if symptoms continue or worsen. Take medication as directed Sepsis Event Note (ED) - Evaluation Sepsis Screening Result: No Definite Risk - Focused Exam Vital Signs: Vital Signs Temp Pulse Resp BP Pulse Ox 05/01/20 16:41 98.1 F 84 16 149/84 H 95 - My Orders Last 24 Hours: My Active Orders 05/01/20 16:58 Sodium Chloride 0.9% [Saline Flush] 10 ml FLUSH Q8HR PRN Peripheral IV Insertion Adult [OM.PC] Routine EKG 12 Lead [EK] Stat 05/01/20 16:59 EKG Documentation Completion [RC] ASDIRECTED Peripheral IV Care [RC] . DIRECTED 05/01/20 17:45 Sodium Chloride 0.9% [Normal Saline] 50 ml IV ASDIRECTED 05/01/20 17:46 Sodium Chloride 0.9% [Normal Saline] 1,000 ml IV .BOLUS - Assessment/Plan Last 24 Hours: My Active Orders 05/01/20 16:58 Sodium Chloride 0.9% [Saline Flush] 10 ml FLUSH Q8HR PRN Peripheral IV Insertion Adult [OM.PC] Routine EKG 12 Lead [EK] Stat 05/01/20 16:59 EKG Documentation Completion [RC] ASDIRECTED Peripheral IV Care [RC] . DIRECTED 05/01/20 17:45 Sodium Chloride 0.9% [Normal Saline] 50 ml IV ASDIRECTED 05/01/20 17:46 Sodium Chloride 0.9% [Normal Saline] 1,000 ml IV .BOLUS Assessment:: Colitis Plan: Follow-up with PCP
[2020-05-01 17:42] LABS: ANION GAP 16.2 mmol/L (5-15); CHLORIDE,CL 100 mmol/L (98-115); SODIUM,NA 137 mmol/L (136-145)
[2020-05-01] MEDS: Sodium Chloride 0.9% 1,000 ML IV ONE (17:58)
[2020-05-01] MEDS: Sodium Chloride 0.9% 50 ML IV SCH (18:02)
[2020-05-01] MEDS: Iopamidol 755 Mg/ML 100 ML Bottle IV ONE (18:02)
--- NOTE | 2020-05-01 18:25 | CT ---
[id number] CT/CT Abdomen Pelvis W IV EXAM: ABDOMEN AND PELVIS CT WITH CONTRAST INDICATION: ABDOMINAL PAIN. COMPARISON: August 01, 2017. DISCUSSION: A mild thick-walled appearance of the colon from the level of the splenic flexure through the rectum could be from early colitis or incomplete distention. Trace free fluid in the pelvis. The gallbladder is surgically absent. The aorta is mildly ectatic and contains multifocal atherosclerotic plaque. The gallbladder, pancreas, spleen, adrenal glands, kidneys, small bowel, and the appendix are normal in appearance. No free air or adenopathy. Surgical changes at the L4-L5 level. Degenerative changes throughout the spine. Chronic healed left lower rib fractures. IMPRESSION: 1. Early colitis is suggested. Trace free fluid in the pelvis. Oswald Ohara MD 05/01/20 2144 Thank you for allowing us to participate in the care of your patient.
[2020-05-01] MEDS: Ondansetron 4 MG Tab.DIS PO ONE ×2 (18:37→18:38)
[2020-05-01] MEDS: metroNIDAZOLE 500 MG Tab PO ONE (18:39)
[2020-05-01] MEDS: Ciprofloxacin 500 MG Tab PO ONE (18:39)
== END 2020-05-01 18:50 | disposition home or self-care (01) ==
LOC: KA.ED 16:40
DX: K52.9 Noninfective gastroenteritis and colitis, unspecified (principal); R11.10 Vomiting, unspecified; E78.00 Pure hypercholesterolemia, unspecified; I10 Essential (primary) hypertension; E11.9 Type 2 diabetes mellitus without complications; E03.9 Hypothyroidism, unspecified; M41.9 Scoliosis, unspecified; F32.9 Major depressive disorder, single episode, unspecified; F17.200 Nicotine dependence, unspecified, uncomplicated; Z79.4 Long term (current) use of insulin; Z79.899 Other long term (current) drug therapy
CPT/HCPCS: 71045; 74177; 80053; 81001; 85025; 93005; 96360; 99284; 99284-25; A9270-GY; J7030; J7050; Q9967

== ENCOUNTER 2020-07-01 15:53 | Emergency (ER) | payer OTHER, MEDICARE, MEDICAID ==
--- NOTE | 2020-07-01 15:57 | EDM.PDOC ---
ED HPI GENERAL MEDICAL PROBLEM - General Chief Complaint: Upper Extremity Injury/Pain Stated Complaint: BRUISED ELBOW Time Seen by Provider: 07/01/20 15:57 Source of Information: Reports: Patient History Limitations: Reports: No Limitations - History of Present Illness INITIAL COMMENTS - FREE TEXT/NARRATIVE: Last weekend, bumped his left elbow on the edge of a boat railing. Increased tenderness with pressure sensation and firmness in the area of a small scab formation. Denies any fever or radiation distally. Denies any numbness tingling to the hand. Onset: Gradual Onset Date: 06/27/20 Duration: Day(s): Location: Reports: Upper Extremity, Left Quality: Reports: Pressure Severity: Moderate Improves with: Reports: None Worsens with: Reports: Movement Context: Reports: Activity Associated Symptoms: Reports: No Other Symptoms Left Elbow Pain Score (Numeric/FACES): 8 - Related Data Allergies Allergy/AdvReac Type Severity Reaction Status Date / Time No Known Drug Allergies Allergy Other Verified 05/01/20 16:46 Home Meds: Home Meds Insulin Detemir [Levemir] 30 units SQ BEDTIME 02/18/14 [History] Insulin Regular, Human [NovoLIN R] 5 units SQ TIDMEALS 02/18/14 [History] lisinopriL [Prinivil] 20 mg PO DAILY 02/18/14 [History] diazePAM [Diazepam] 20 mg PO BEDTIME PRN 10/05/15 [History] oxyCODONE HCl [Oxycontin] 20 mg PO DAILY 10/05/15 [History] oxyCODONE ER [OxyCONTIN] 10 mg PO BEDTIME 03/30/18 [History] Citalopram Hydrobromide [Celexa] 30 mg PO DAILY 11/05/19 [History] Levothyroxine Sodium [Synthroid] 112 mcg PO DAILY 11/05/19 [History] Tamsulosin [Flomax] 0.4 mg PO DAILY 11/05/19 [History] Ciprofloxacin HCl [Cipro] 500 mg PO BID #14 tablet 05/01/20 [Rx] Metoprolol Succinate 50 mg PO DAILY 05/01/20 [History] atorvaSTATin [Lipitor] 10 mg PO DAILY 05/01/20 [History] metroNIDAZOLE [Flagyl] 500 mg PO BID #14 tablet 05/01/20 [Rx] sulfaSALAzine 1,000 mg PO BID 05/01/20 [History] Dicloxacillin 500 mg PO QID 10 Days #40 cap 07/01/20 [Rx] Past Medical History HEENT History: Reports: Impaired Vision Other HEENT History: blind in left eye Cardiovascular History: Reports: High Cholesterol, Hypertension Respiratory History: Reports: Other (See Below) Other Respiratory History: daily smoker Gastrointestinal History: Reports: None Genitourinary History: Reports: Retention, Urinary, Other (See Below) Other Genitourinary History: on flomax for urinary flow Musculoskeletal History: Reports: Arthritis, Back Pain, Chronic, Other (See Below) Other Musculoskeletal History: scoliosis. disc issues Neurological History: Reports: Head Trauma Psychiatric History: Reports: Depression, Panic Attack Endocrine/Metabolic History: Reports: Hypothyroidism, IDDM Hematologic History: Reports: Anemia - Infectious Disease History Infectious Disease History: Reports: Hepatitis C - Past Surgical History Head Surgeries/Procedures: Reports: None HEENT Surgical History: Reports: None Cardiovascular Surgical History: Reports: None Respiratory Surgical History: Reports: None GI Surgical History: Reports: Cholecystectomy, Colonoscopy Male Surgical History: Reports: None Endocrine Surgical History: Reports: None Neurological Surgical History: Reports: None Musculoskeletal Surgical History: Reports: None Social & Family History - Family History Family Medical History: Noncontributory - Caffeine Use Caffeine Use: Reports: Coffee, Soda ED ROS GENERAL - Review of Systems Review Of Systems: Comprehensive ROS is negative, except as noted in HPI. ED EXAM, GENERAL - Physical Exam Exam: See Below Free Text/Narrative:: Alert oriented in no distress. HEENT is benign discharge nor deformity. Thorax is raspy no wheezes are noted. Cardiac regular radial pulse present and equal bilateral. Focused examination left upper extremity shows range of motion is intact. There is an olecranon bursitis to the left elbow with firmness and a fluid- filled pouchlike in the proximal ulna region. There is a small scab with no redness or drainage surrounding it. Motion is intact to the wrist and hand. Course - Vital Signs Last Recorded V/S: Last Vital Signs Temp 36.6 C 07/01/20 16:00 Pulse 68 07/01/20 16:00 Resp 20 07/01/20 16:00 BP 143/87 H 07/01/20 16:00 Pulse Ox 96 07/01/20 16:00 Departure - Departure Time of Disposition: 16:13 Disposition: Home, Self-Care 01 Condition: Good Clinical Impression: Olecranon bursitis of left elbow - Discharge Information Prescriptions: Dicloxacillin 500 mg PO QID 10 Days #40 cap Referrals: PCP,Unknown [Ordering Only Provider] - Forms: ED Department Discharge Additional Instructions: Take antibiotic as instructed for the next 7 days. Continue all your other medications as directed. This needs to be rechecked if not showing improvement by day 3. Sepsis Event Note (ED) - Focused Exam Vital Signs: Vital Signs Temp Pulse Resp BP Pulse Ox 07/01/20 16:00 36.6 C 68 20 143/87 H 96 - Problem List & Annotations (1) Olecranon bursitis of left elbow SNOMED Code(s): 642224705154847 Code(s): M70.22 - OLECRANON BURSITIS, LEFT ELBOW Status: Acute Priority: High Annotation/Comment:: If this does not show improvement need to follow with your clinic for potential referral to orthopedic if not showing improvement for the consideration of aspiration. Heat application and antibiotic as of today. - Problem List Review Problem List Initiated/Reviewed/Updated: Yes - Assessment/Plan Plan: Take antibiotic as instructed for the next 7 days. Continue all your other medications as directed. This needs to be rechecked if not showing improvement by day 3.
[2020-07-01 16:07] VITALS: BP 143/87; PULSE 68
== END 2020-07-01 16:25 | disposition home or self-care (01) ==
LOC: KA.ED 15:53
DX: M70.22 Olecranon bursitis, left elbow (principal); I10 Essential (primary) hypertension; E78.00 Pure hypercholesterolemia, unspecified; E03.9 Hypothyroidism, unspecified; E11.9 Type 2 diabetes mellitus without complications; F41.0 Panic disorder [episodic paroxysmal anxiety]; F32.9 Major depressive disorder, single episode, unspecified; Z79.4 Long term (current) use of insulin; Z90.49 Acquired absence of other specified parts of digestive tract; Z79.899 Other long term (current) drug therapy
CPT/HCPCS: 99283

== ENCOUNTER 2020-07-02 21:37 | Emergency (ER) | payer OTHER, MEDICARE, MEDICAID ==
[2020-07-02] MEDS ORDERED: cefTRIAXone 1 GM Vial IM ONE (21:43)
[2020-07-02 21:44] VITALS: BP 147/103; PULSE 92
[2020-07-02] MEDS ORDERED: Lidocaine 1% 20 ML MDV ONE (21:54)
--- NOTE | 2020-07-02 21:57 | EDM.PDOC ---
ED HPI GENERAL MEDICAL PROBLEM - General Chief Complaint: General Stated Complaint: elbow pain,infection Time Seen by Provider: 07/02/20 21:42 Source of Information: Reports: Patient History Limitations: Reports: No Limitations - History of Present Illness INITIAL COMMENTS - FREE TEXT/NARRATIVE: presents with his for continuing left elbow pain swelling redness and worsening of infection. 3 days ago, he missed his step on the fishing boat, landed directly on his left elbow, came into the ER here 2 days after with pain swelling redness, dx with olecranon bursitis clinically, sent home with dicloxacillin, he took 4 doses, did not tolerate the medicines has had some side effects of upset stomach and heart burn with them. No xray was completed prev. visit. The redness swelling has spread down the forearm and partially up his upper arm. No pain at the joint with ROM. He notes having goose bumps couple times today where he put on an extra shirt. However no fevers sweats or myalgias. Pain is 8/10 worse when I press on the area. He has not elevated or iced it. He does have chronic pain and is on narcotics oxy as needed. His last Tdap was updated a year ago per patient. Left Arm Pain Score (Numeric/FACES): 7 - Related Data Allergies Allergy/AdvReac Type Severity Reaction Status Date / Time No Known Drug Allergies Allergy Other Verified 07/02/20 21:47 Home Meds: Home Meds Insulin Detemir [Levemir] 30 units SQ BEDTIME 02/18/14 [History] Insulin Regular, Human [NovoLIN R] 5 units SQ TIDMEALS 02/18/14 [History] lisinopriL [Prinivil] 20 mg PO DAILY 02/18/14 [History] diazePAM [Diazepam] 20 mg PO BEDTIME PRN 10/05/15 [History] oxyCODONE HCl [Oxycontin] 20 mg PO DAILY 10/05/15 [History] oxyCODONE ER [OxyCONTIN] 10 mg PO BEDTIME 03/30/18 [History] Citalopram Hydrobromide [Celexa] 30 mg PO DAILY 11/05/19 [History] Levothyroxine Sodium [Synthroid] 112 mcg PO DAILY 11/05/19 [History] Tamsulosin [Flomax] 0.4 mg PO DAILY 11/05/19 [History] Ciprofloxacin HCl [Cipro] 500 mg PO BID #14 tablet 05/01/20 [Rx] Metoprolol Succinate 50 mg PO DAILY 05/01/20 [History] atorvaSTATin [Lipitor] 10 mg PO DAILY 05/01/20 [History] metroNIDAZOLE [Flagyl] 500 mg PO BID #14 tablet 05/01/20 [Rx] sulfaSALAzine 1,000 mg PO BID 05/01/20 [History] Amoxicillin 875 mg PO BID 10 Days #20 tab 07/02/20 [Rx] Doxycycline Monohydrate 100 mg PO BID 10 Days #20 capsule 07/02/20 [Rx] Past Medical History HEENT History: Reports: Impaired Vision Other HEENT History: blind in left eye Cardiovascular History: Reports: High Cholesterol, Hypertension Respiratory History: Reports: Other (See Below) Other Respiratory History: daily smoker Gastrointestinal History: Reports: None Genitourinary History: Reports: Retention, Urinary, Other (See Below) Other Genitourinary History: on flomax for urinary flow Musculoskeletal History: Reports: Arthritis, Back Pain, Chronic, Other (See Below) Other Musculoskeletal History: scoliosis. disc issues Neurological History: Reports: Head Trauma Psychiatric History: Reports: Depression, Panic Attack Endocrine/Metabolic History: Reports: Hypothyroidism, IDDM Hematologic History: Reports: Anemia - Infectious Disease History Infectious Disease History: Reports: Hepatitis C - Past Surgical History Head Surgeries/Procedures: Reports: None HEENT Surgical History: Reports: None Cardiovascular Surgical History: Reports: None Respiratory Surgical History: Reports: None GI Surgical History: Reports: Cholecystectomy, Colonoscopy Male Surgical History: Reports: None Endocrine Surgical History: Reports: None Neurological Surgical History: Reports: None Musculoskeletal Surgical History: Reports: None Social & Family History - Family History Family Medical History: Noncontributory - Caffeine Use Caffeine Use: Reports: Coffee ED ROS GENERAL - Review of Systems Review Of Systems: See Below Constitutional: Reports: Chills, Other (chills three times today). Denies: Fever Respiratory: Reports: No Symptoms. Denies: Shortness of Breath Cardiovascular: Reports: No Symptoms. Denies: Chest Pain GI/Abdominal: Reports: Other (acid reflux after abx , took 4 doses and does not tolerated the abx) Musculoskeletal: Reports: Arm Pain (left elbow pain) Skin: Reports: Erythema Neurological: Reports: No Symptoms. Denies: Numbness, Tingling ED EXAM, GENERAL - Physical Exam Exam: See Below Exam Limited By: No Limitations General Appearance: Alert, No Apparent Distress Head: Atraumatic, Normocephalic Respiratory/Chest: No Respiratory Distress, Lungs Clear, Normal Breath Sounds Cardiovascular: Normal Peripheral Pulses, Regular Rate, Rhythm GI/Abdominal: Soft, Non-Tender Extremities: Increased Warmth (left elbow, small fluctuant abscess just distal the to olecranon process. ), Redness Neurological: Alert, Oriented, Normal Gait Psychiatric: Normal Affect, Normal Mood Skin Exam: Warm, Dry, Intact, Erythema (at elbow) Lymphatic: Other (no signs of lymphangitis) ED GENERAL MEDICAL PROCEDURES - Endotracheal Intubation Pre-Oxygenation: Assisted with BVM, 100% FiO2 Confirmed By: CO2 Indicator, Bilateral Breath Sounds - Additional/Other Procedure(s) Other (Free Text) Procedure(s): incision and drainage. discussed risks vs benefits, after xray was completed, no signs of acute fracture, she does have an abscess near the process just distal to the olecranon bursa. IT was hot swollen painful, it does have a scan/abrasion, which the abscess developed after the trauma. He does have a few other small scab abrasions around elbow, provided source for infection after trauma. Patient was thoroughly educated on risks and benefits. both agree to I and D under strict sterile technique to open up the small abscess, and culture it which will help guide tx in the future, clemente the abx he is one is not effective and symptoms have gradually worsen in the past 24 hours after 4 doses. No hx of MRSA in the past, or recent hospitalization, he does immunocompromised on long duration of prednisone and is a diabetic. under sterile technique, Betadine to clean the site, allowed the area to dry, used 1% lido w/o 2 ml to anesthetize the area, using a 18 g needle and 20 ml syringe I aspirated a trace amount 1 ml of serosanguineous fluid placed onto a wound culture swab sent to Lab. This abscess was not the bursa sac and did not access the joint, it was on the screen distal to the elbow joint developed after the injury. cleaned up the site, applied bacitracin on the site, along with the other abrasions he has on his arm from previous small skin injuries. Course - Vital Signs Last Recorded V/S: Last Vital Signs Temp 98.2 F 07/02/20 21:43 Pulse 92 07/02/20 21:43 Resp 16 07/02/20 21:43 BP 147/103 H 07/02/20 21:43 Pulse Ox 95 07/02/20 21:43 - Orders/Labs/Meds Orders: Active Orders 24 hr Category Date Time Status CULTURE WOUND [RM] Stat Lab 07/02/20 22:30 Received MISCELLANEOUS CULT [MREF] Stat Lab 07/02/20 23:00 Received Meds: Medications Discontinued Medications Generic Name Dose Route Start Last Admin Trade Name Alvaroq PRN Reason Stop Dose Admin Bacitracin 1 gm 07/02/20 22:43 07/02/20 22:44 Bacitracin Oint TOP 07/02/20 22:44 1 applic ONETIME ONE Administration Ceftriaxone Sodium 1 gm 07/02/20 21:43 07/02/20 22:46 Rocephin IM 07/02/20 21:44 1 gm ONETIME ONE Administration Lidocaine HCl Confirm 07/02/20 21:54 07/02/20 22:46 Xylocaine 1% Administered 07/02/20 21:55 Not Given Dose 20 ml .ROUTE .STK-MED ONE Lidocaine HCl 2.1 ml 07/02/20 22:00 07/02/20 22:49 Xylocaine 1% INJECT 07/02/20 22:01 Not Given ONETIME ONE Lidocaine HCl 2.1 ml 07/02/20 22:48 07/02/20 22:50 Xylocaine 1% INJECT 07/02/20 22:49 2.1 ml ONETIME ONE Administration Lidocaine HCl 2 ml 07/02/20 22:48 07/02/20 22:51 Xylocaine 1% INJECT 07/02/20 22:49 2 ml ONETIME ONE Administration - Re-Assessments/Exams Free Text/Narrative Re-Assessment/Exam: 07/03/20 09:53 patient is going to check on his chart tomorrow, for last tdap vaccine to ensure it is up today, thinks its been longer than what the patient states. he understands to pharmacy picking technician both medicines tomorrow first thing, 1 gm of Rocephin was given, RICE therapy discussed, monitor for worsening s/s of infection, i did give the patient my number for close f/u, I sat down with both pt and spouse had a thorough discussion on return precautions and plane of care both verbalized understanding. I did discuss worsening symptoms and s/s of compartment syndrome and what septic bursitis/arthritis is. He does have full ROM with joint without pain, no systemic symptoms besides feeling "chilled twice at home today" , no fever, no pain out of proportion. I stopped the doxciclllian due to intolerance, per up to date guidelines, w/ the abscess so I considered MRSA, order doxy bid x10 days , discussed avoiding sun with that as well, and ordered amox 875 mg BID x 10 days. 07/03/20 09:57 Departure - Departure Time of Disposition: 22:19 Disposition: Home, Self-Care 01 Preliminary Cause of *Q: Sepsis & Multi System Organ Failure Condition: Good Clinical Impression: Olecranon bursitis of left elbow, Cellulitis of left elbow - Discharge Information *PRESCRIPTION DRUG MONITORING PROGRAM REVIEWED*: Not Applicable *COPY OF PRESCRIPTION DRUG MONITORING REPORT IN PATIENT SHAMAR: Not Applicable Prescriptions: Amoxicillin 875 mg PO BID 10 Days #20 tab Doxycycline Monohydrate 100 mg PO BID 10 Days #20 capsule Instructions: Cellulitis, Adult, Bursitis, [id number] Referrals: Beck Eng PA [Primary Care Provider] - Forms: ED Department Discharge Care Plan Goals: please follow up with your PCP in 24 hours to ensure it is improving, call me in the meantime if you have any further concerns and if not able to have close f/u. - My Orders Last 24 Hours: My Active Orders 07/02/20 22:30 CULTURE WOUND [RM] Stat 07/02/20 23:00 MISCELLANEOUS CULT [MREF] Stat - Assessment/Plan Last 24 Hours: My Active Orders 07/02/20 22:30 CULTURE WOUND [RM] Stat 07/02/20 23:00 MISCELLANEOUS CULT [MREF] Stat
[2020-07-02] MEDS ORDERED: Lidocaine 1% 50 ML MDV INJECT ONE (22:00)
[2020-07-02] MEDS ORDERED: Bacitracin Oint 30 GM Tube TOP ONE (22:43)
[2020-07-02] MEDS ORDERED: Lidocaine 1% 20 ML MDV INJECT ONE ×2 (22:48)
--- NOTE | 2020-07-03 07:59 | CR ---
[id number] RAD/RAD Elbow Left 3V Min EXAM: RAD Elbow Left 3V Min CLINICAL DATA: TRAUMA COMPARISON: NO PREVIOUS SIMILAR EXAM IS AVAILABLE. FINDINGS: No fracture or dislocation is seen. There is no radiopaque foreign body in the soft tissues. There is no air in the soft tissues. There is no cortical thickening or periosteal reaction either. IMPRESSION: NEGATIVE PLAIN FILM EXAM. Tom Duckworth MD 07/03/20 0758 Thank you for allowing us to participate in the care of your patient.
== END 2020-07-02 23:02 | disposition home or self-care (01) ==
LOC: KA.ED 21:37
DX: M70.22 Olecranon bursitis, left elbow (principal); L03.114 Cellulitis of left upper limb; E78.00 Pure hypercholesterolemia, unspecified; I10 Essential (primary) hypertension; F32.9 Major depressive disorder, single episode, unspecified; E03.9 Hypothyroidism, unspecified; M41.9 Scoliosis, unspecified; Z79.899 Other long term (current) drug therapy; E11.9 Type 2 diabetes mellitus without complications; Z79.4 Long term (current) use of insulin
CPT/HCPCS: 10060; 10160; 73080-LT; 87070; 87186; 87205; 96372; 99283-25; 99284; J0696; J2001

== ENCOUNTER 2022-05-22 10:24 | Emergency (ER) | payer MEDICARE, MEDICAID ==
[2022-05-22] MEDS ORDERED: Sodium Chloride 0.9% 10 ML Syringe FLUSH PRN (10:35)
[2022-05-22] MEDS: Sodium Chloride 0.9% 1,000 ML IV ONE (11:05)
[2022-05-22 11:08] LABS: CHLORIDE,CL 101 mmol/L (98-107); SODIUM,NA 138 mmol/L (136-145)
[2022-05-22 11:11] LABS: ESTIMATED GFR 97 mL/min (>=60)
[2022-05-22] MEDS: Diltiazem 25 MG/5 ML SDV IVPUSH ONE (11:14)
[2022-05-22] MEDS: LORazepam 2 MG/ML SDV IVPUSH ONE (12:09)
[2022-05-22] MEDS: Ondansetron 4 MG Tab.DIS ONE (14:08)
[2022-05-22 14:13] VITALS: BP 111/73; PULSE 64
== END 2022-05-22 12:30 | disposition home or self-care (01) ==
LOC: KA.ED 10:24
DX: I48.92 Unspecified atrial flutter (principal); E78.00 Pure hypercholesterolemia, unspecified; I10 Essential (primary) hypertension; E03.9 Hypothyroidism, unspecified; E11.9 Type 2 diabetes mellitus without complications; Z79.4 Long term (current) use of insulin; Z79.899 Other long term (current) drug therapy
CPT/HCPCS: 36415; 71046; 80053; 84484; 85025; 85379; 93005; 96361; 96374; 99285; J3490; J7030; 93010

== ENCOUNTER 2022-07-03 19:59 | Emergency (ER) | payer MEDICARE, MEDICAID ==
[2022-07-03 20:29] VITALS: BP 155/78; PULSE 76
[2022-07-03] MEDS: Azithromycin 250 MG Tab PO ONE (20:48)
== END 2022-07-03 20:55 | disposition home or self-care (01) ==
LOC: KA.ED 19:59
DX: J06.9 Acute upper respiratory infection, unspecified (principal); E78.00 Pure hypercholesterolemia, unspecified; I10 Essential (primary) hypertension; E03.9 Hypothyroidism, unspecified; E11.9 Type 2 diabetes mellitus without complications; Z79.4 Long term (current) use of insulin; Z79.899 Other long term (current) drug therapy
CPT/HCPCS: 99283; A9270-GY

== ENCOUNTER 2023-02-11 20:00 | Emergency (ER) | payer MEDICARE, MEDICAID ==
[2023-02-11] MEDS ORDERED: Sodium Chloride 0.9% 1,000 ML IV ONE ×2 (20:31→21:29)
[2023-02-11] MEDS ORDERED: Aspirin 81 MG Tab.Chew PO ONE (20:31)
[2023-02-11] MEDS ORDERED: Sodium Chloride 0.9% 10 ML Syringe FLUSH PRN (20:31)
[2023-02-11] MEDS ORDERED: Ondansetron 4 MG/2 ML SDV IVPUSH ONE (21:02)
[2023-02-11 21:08] LABS: ANION GAP 14.2 mmol/L (5-15)
[2023-02-11 22:11] VITALS: BP 96/51; PULSE 83
[2023-02-12 00:18] LABS: THC SCREEN,URINE 50 NG/ML POSITIVE (NEGATIVE)
[2023-02-12 00:19] LABS: BARBITURATE SCREEN,URINE NEGATIVE (NEGATIVE); BENZODIAZEPINES SCREEN,URINE NEGATIVE (NEGATIVE); TCA SCREEN,URINE NEGATIVE (NEGATIVE)
== END 2023-02-12 00:05 | disposition home or self-care (01) ==
LOC: KA.ED 20:00
DX: E86.0 Dehydration (principal); E11.649 Type 2 diabetes mellitus with hypoglycemia without coma; I95.9 Hypotension, unspecified; E86.1 Hypovolemia; R41.0 Disorientation, unspecified; E78.00 Pure hypercholesterolemia, unspecified; I10 Essential (primary) hypertension; E03.9 Hypothyroidism, unspecified; F17.210 Nicotine dependence, cigarettes, uncomplicated; Z79.4 Long term (current) use of insulin; Z79.899 Other long term (current) drug therapy
CPT/HCPCS: 36415; 70450; 71045; 80053; 80305; 80307; 81001; 82947; 84484; 85025; 96361; 96374; 99284; A9270; J2405; J7030; 93010; 99285

== ENCOUNTER 2023-06-06 08:09 | Emergency (ER) | payer MEDICARE, MEDICAID ==
[2023-06-06] MEDS: Sodium Chloride 0.9% 10 ML Syringe FLUSH PRN (08:20)
[2023-06-06 08:30] VITALS: BP 201/103; PULSE 100
[2023-06-06 08:34] LABS: BASOPHILS ABSOLUTE AUTO 0.04 10^3/uL (0.00-0.10); BASOPHILS PERCENT AUTO 0.3 % (0.0-1.0); EOSINOPHILS ABSOLUTE AUTO 0.05 10^3/uL (0.10-0.30); EOSINOPHILS PERCENT AUTO 0.4 % (1.0-3.0); HEMOGLOBIN 14.8 g/dL (13.0-17.0); IMMATURE GRAN ABSOLUTE AUTO 0.03 10^3/uL (0.00-0.50); IMMATURE GRAN PERCENT AUTO 0.2 % (0.0-5.0); LYMPHOCYTES ABSOLUTE AUTO 0.88 10^3/uL (1.00-4.00); LYMPHOCYTES PERCENT AUTO 6.9 % (20.0-40.0); MEAN CORPUSCULAR HGB CONC 33.6 g/dL (32.0-36.0); MEAN CORPUSCULAR VOLUME 92.2 fL (82.0-92.0); MEAN PLATELET VOLUME 10.4 fL (7.4-10.4); MONOCYTES ABSOLUTE AUTO 0.16 10^3/uL (0.10-0.80); MONOCYTES PERCENT AUTO 1.3 % (2.0-8.0); NEUTROPHILS ABSOLUTE AUTO 11.51 10^3/uL (2.50-7.00); NEUTROPHILS PERCENT AUTO 90.9 % (50.0-70.0); PLATELET COUNT,PLT 230 10^3/uL (150-400); RED BLOOD CELL COUNT 4.77 10^6/uL (4.50-6.00); RED CELL DISTRIBUTION WIDTH 13.6 % (11.5-14.5); WHITE BLOOD CELL COUNT,WBC 12.67 10^3/uL (5.00-10.00)
[2023-06-06 08:46] LABS: LACTIC ACID 4.5 mmol/L (0.4-2.0)
[2023-06-06 08:49] LABS: AMPHETAMINES SCREEN, URINE NEGATIVE (NEGATIVE); BARBITURATE SCREEN,URINE NEGATIVE (NEGATIVE); BENZODIAZEPINES SCREEN,URINE NEGATIVE (NEGATIVE); COCAINE METABOLITES,URINE NEGATIVE (NEGATIVE); METHADONE SCREEN, URINE NEGATIVE (NEGATIVE); METHAMPHETAMINES SCREEN, URINE NEGATIVE (NEGATIVE); OXYCODONE SCREEN,URINE NEGATIVE (NEGATIVE); PCP SCREEN,URINE NEGATIVE (NEGATIVE); PROPOXYPHENE SCREEN,URINE NEGATIVE (NEGATIVE); TCA SCREEN,URINE NEGATIVE (NEGATIVE); THC SCREEN,URINE 50 NG/ML POSITIVE (NEGATIVE)
[2023-06-06 08:51] LABS: APPEARANCE,URINE CLEAR (CLEAR); BILIRUBIN,URINE NEGATIVE (NEGATIVE); COLOR,URINE YELLOW (YELLOW); GLUCOSE,URINE >=1000 mg/dL (NEGATIVE); KETONES,URINE 80 mg/dL (NEGATIVE); LEUKOCYTE ESTERASE,URINE NEGATIVE (NEGATIVE); NITRITE,URINE NEGATIVE (NEGATIVE); OCCULT BLOOD,URINE SMALL (NEGATIVE); PROTEIN,URINE 100 mg/dL (NEGATIVE); UROBILINOGEN,URINE 0.2 E.U./dL (0.2-1.0)
[2023-06-06] MEDS: Sodium Chloride 0.9% 1,000 ML IV SCH (08:51)
[2023-06-06 08:53] LABS: ALANINE AMINOTRANSFERASE,ALT 30 U/L (14-63); ALBUMIN 3.95 g/dL (3.40-5.00); ALKALINE PHOSPHATASE 151 U/L (46-116); ANION GAP 22.5 mmol/L (5-15); ASPARTATE AMNIOTRANSFERASE,AST 33 U/L (15-37); BILIRUBIN TOTAL 0.7 mg/dL (0.2-1.0); BLOOD UREA NITROGEN,BUN 26 mg/dL (7-18); CALCIUM 9.3 mg/dL (8.7-10.3); CARBON DIOXIDE,CO2 23.3 mmol/L (21.0-32.0); CHLORIDE,CL 96 mmol/L (98-107); CREATININE 0.78 mg/dL (0.51-1.17); EST CRCL DRUG DOSING (CG) 80.66 mL/min; GLUCOSE RANDOM 431 mg/dL (70-140); LIPASE 73 U/L (73-393); POTASSIUM,K 3.8 mmol/L (3.5-5.1); PROTEIN TOTAL,TP 8.5 g/dL (6.4-8.2); SODIUM,NA 138 mmol/L (136-145)
[2023-06-06 08:56] LABS: BACTERIA,URINE OCCASIONAL /HPF (NONE TO FEW); EPITHELIAL CELLS,URINE OCCASIONAL /LPF; WBC,URINE 0-5 /HPF (0-5)
[2023-06-06 08:58] LABS: HEMOGLOBIN A1C 8.6 % (4.3-5.7)
[2023-06-06 08:59] LABS: ESTIMATED GFR 97 mL/min (>=60); ETHANOL BLOOD MEDICAL < 3 mg/dL (NOT DETECTED)
[2023-06-06 09:00] LABS: O2 DELIVERY DEVICE ROOM AIR
[2023-06-06 09:02] LABS: BASE EXCESS ARTERIAL 2 mmol/L ((-2)-(+3)); BICARBONATE,ARTERIAL 26 mmol/L (21-28); O2 SATURATION ARTERIAL 98 %; PCO2 ARTERIAL 35 mmHG (35-48); PH,ARTERIAL 7.47 pH (7.35-7.45); PO2 ARTERIAL 91 mmHG (83-108)
[2023-06-06 09:25] LABS: TSH ULTRASENSITIVE 3.3 uIU/mL (0.340-4.820)
[2023-06-06] MEDS: Iopamidol 755 Mg/ML 100 ML Bottle IV ONE (09:44)
[2023-06-06] MEDS: Sodium Chloride 0.9% 100 ML IV SCH (09:44)
[2023-06-06] MEDS: Ondansetron 4 MG/2 ML SDV IVPUSH ONE (10:03)
== END 2023-06-06 11:45 | disposition home or self-care (01) ==
LOC: KA.ED 08:09
DX: E11.65 Type 2 diabetes mellitus with hyperglycemia (principal); R91.8 Other nonspecific abnormal finding of lung field; F12.20 Cannabis dependence, uncomplicated; E78.00 Pure hypercholesterolemia, unspecified; I10 Essential (primary) hypertension; F17.210 Nicotine dependence, cigarettes, uncomplicated; E03.9 Hypothyroidism, unspecified; Z79.4 Long term (current) use of insulin; Z79.899 Other long term (current) drug therapy
CPT/HCPCS: 36415; 36600; 71275; 80053; 80305-QW; 80307; 81001; 82803; 83036; 83605; 83690; 84443; 84484; 85025; 85379; 93005; 93010; 96361; 96374; 99284; 99284-25; J2405; J3490; J7030; Q9967

== ENCOUNTER 2023-06-12 17:01 | Emergency (ER) | payer MEDICARE, MEDICAID ==
[2023-06-12] MEDS ORDERED: Sodium Chloride 0.9% 10 ML Syringe FLUSH PRN (17:22)
[2023-06-12] MEDS ORDERED: Ondansetron 4 MG/2 ML SDV IVPUSH ONE (17:34)
[2023-06-12] MEDS ORDERED: Sodium Chloride 0.9% 1,000 ML IV ONE (17:35)
[2023-06-12 17:42] LABS: BASOPHILS ABSOLUTE AUTO 0.04 10^3/uL (0.00-0.10); BASOPHILS PERCENT AUTO 0.5 % (0.0-1.0); EOSINOPHILS ABSOLUTE AUTO 0.19 10^3/uL (0.10-0.30); EOSINOPHILS PERCENT AUTO 2.5 % (1.0-3.0); HEMATOCRIT 34.7 % (40.0-52.0); LYMPHOCYTES ABSOLUTE AUTO 1.92 10^3/uL (1.00-4.00); LYMPHOCYTES PERCENT AUTO 25.7 % (20.0-40.0); MEAN CORPUSCULAR HEMOGLOBIN 32.2 pg (27.0-31.0); MEAN CORPUSCULAR HGB CONC 34.6 g/dL (32.0-36.0); MEAN PLATELET VOLUME 10.4 fL (7.4-10.4); MONOCYTES ABSOLUTE AUTO 0.46 10^3/uL (0.10-0.80); MONOCYTES PERCENT AUTO 6.2 % (2.0-8.0); NEUTROPHILS ABSOLUTE AUTO 4.86 10^3/uL (2.50-7.00); NEUTROPHILS PERCENT AUTO 65.1 % (50.0-70.0); PLATELET COUNT,PLT 178 10^3/uL (150-400); RED BLOOD CELL COUNT 3.73 10^6/uL (4.50-6.00); RED CELL DISTRIBUTION WIDTH 13.5 % (11.5-14.5); WHITE BLOOD CELL COUNT,WBC 7.47 10^3/uL (5.00-10.00)
[2023-06-12 18:11] LABS: B-TYPE NATRIURETIC PEPTIDE,BNP 154 pg/mL (0-100)
[2023-06-12 18:13] LABS: ALANINE AMINOTRANSFERASE,ALT 21 U/L (14-63); ALBUMIN 3.15 g/dL (3.40-5.00); ALKALINE PHOSPHATASE 109 U/L (46-116); AMYLASE 75 U/L (25-125); ANION GAP 13.8 mmol/L (5-15); ASPARTATE AMNIOTRANSFERASE,AST 22 U/L (15-37); BILIRUBIN TOTAL 0.3 mg/dL (0.2-1.0); BLOOD UREA NITROGEN,BUN 30 mg/dL (7-18); CALCIUM 8.6 mg/dL (8.7-10.3); CARBON DIOXIDE,CO2 25.6 mmol/L (21.0-32.0); CHLORIDE,CL 101 mmol/L (98-107); CREATININE 0.85 mg/dL (0.51-1.17); EST CRCL DRUG DOSING (CG) 71.35 mL/min; ESTIMATED GFR 94 mL/min (>=60); GLUCOSE RANDOM 198 mg/dL (70-140); LACTIC ACID 1.7 mmol/L (0.4-2.0); LIPASE 58 U/L (73-393); POTASSIUM,K 4.4 mmol/L (3.5-5.1); PROTEIN TOTAL,TP 6.7 g/dL (6.4-8.2); SODIUM,NA 136 mmol/L (136-145)
[2023-06-12 18:14] LABS: ETHANOL BLOOD MEDICAL < 3 mg/dL (NOT DETECTED)
[2023-06-12 18:43] VITALS: BP 134/59; PULSE 57
[2023-06-12] MEDS ORDERED: Iopamidol 755 Mg/ML 100 ML Bottle IV ONE (18:56)
[2023-06-12] MEDS ORDERED: Sodium Chloride 0.9% 50 ML IV SCH (19:00)
[2023-06-12 19:10] LABS: APPEARANCE,URINE CLEAR (CLEAR); BILIRUBIN,URINE NEGATIVE (NEGATIVE); COLOR,URINE YELLOW (YELLOW); GLUCOSE,URINE 100 mg/dL (NEGATIVE); KETONES,URINE 15 mg/dL (NEGATIVE); LEUKOCYTE ESTERASE,URINE NEGATIVE (NEGATIVE); NITRITE,URINE NEGATIVE (NEGATIVE); OCCULT BLOOD,URINE NEGATIVE (NEGATIVE); PH,URINE 5.5 (5.0-9.0); PROTEIN,URINE NEGATIVE (NEGATIVE); UROBILINOGEN,URINE 0.2 E.U./dL (0.2-1.0)
[2023-06-12] MEDS ORDERED: Glucose Gel 15 GM in 37.5 GM Tube PO ONE (19:17)
[2023-06-12] MEDS ORDERED: Glucose Gel 15 GM in 37.5 GM Tube ONE (19:17)
[2023-06-12] MEDS ORDERED: Dextrose 5% in Water 250 ML ONE (19:55)
[2023-06-12] MEDS ORDERED: Dextrose 5% in Water 250 ML IV SCH (20:00)
== END 2023-06-12 20:50 | disposition home or self-care (01) ==
LOC: KA.ED 17:01
DX: R10.84 Generalized abdominal pain (principal); E11.649 Type 2 diabetes mellitus with hypoglycemia without coma; R01.1 Cardiac murmur, unspecified; E11.65 Type 2 diabetes mellitus with hyperglycemia; E78.00 Pure hypercholesterolemia, unspecified; I10 Essential (primary) hypertension; E03.9 Hypothyroidism, unspecified; F17.210 Nicotine dependence, cigarettes, uncomplicated; Z79.4 Long term (current) use of insulin; Z79.899 Other long term (current) drug therapy
CPT/HCPCS: 36415; 74177; 80053; 80307; 81003; 82150; 83605; 83690; 83880; 84484; 85025; 85379; 87040; 93010; 96361; 96374; 99284; 99285-25; J2405; J3490; J7030; Q9967

== ENCOUNTER 2023-10-31 23:20 | Emergency (ER) | payer MEDICARE, MEDICAID ==
[2023-10-31] MEDS ORDERED: Sodium Chloride 0.9% 10 ML Syringe FLUSH PRN (23:24)
[2023-10-31 23:44] LABS: BASOPHILS ABSOLUTE AUTO 0.04 10^3/uL (0.00-0.10); BASOPHILS PERCENT AUTO 0.2 % (0.0-1.0); EOSINOPHILS ABSOLUTE AUTO 0.01 10^3/uL (0.10-0.30); HEMATOCRIT 33.2 % (40.0-52.0); HEMOGLOBIN 11.3 g/dL (13.0-17.0); IMMATURE GRAN ABSOLUTE AUTO 0.18 10^3/uL (0.00-0.50); IMMATURE GRAN PERCENT AUTO 0.8 % (0.0-5.0); LYMPHOCYTES ABSOLUTE AUTO 2.87 10^3/uL (1.00-4.00); LYMPHOCYTES PERCENT AUTO 12.5 % (20.0-40.0); MEAN CORPUSCULAR HEMOGLOBIN 31.6 pg (27.0-31.0); MEAN CORPUSCULAR VOLUME 92.7 fL (82.0-92.0); MEAN PLATELET VOLUME 10.7 fL (7.4-10.4); MONOCYTES ABSOLUTE AUTO 1.28 10^3/uL (0.10-0.80); MONOCYTES PERCENT AUTO 5.6 % (2.0-8.0); NEUTROPHILS ABSOLUTE AUTO 18.53 10^3/uL (2.50-7.00); NEUTROPHILS PERCENT AUTO 80.9 % (50.0-70.0); PLATELET COUNT,PLT 215 10^3/uL (150-400); RED BLOOD CELL COUNT 3.58 10^6/uL (4.50-6.00); WHITE BLOOD CELL COUNT,WBC 22.91 10^3/uL (5.00-10.00)
[2023-10-31] MEDS: Sodium Chloride 0.9% 1,000 ML IV ONE (23:45)
[2023-10-31 23:59] LABS: PCO2 VENOUS,POC 19 mmHg (41-51); PH VENOUS,POC 7.43 pH (7.32-7.43); PO2 VENOUS,POC 55 mmHg
[2023-11-01 00:05] LABS: ALANINE AMINOTRANSFERASE,ALT 62 U/L (14-63); ALBUMIN 3.75 g/dL (3.40-5.00); ALKALINE PHOSPHATASE 154 U/L (46-116); ANION GAP 27.8 mmol/L (5-15); ASPARTATE AMNIOTRANSFERASE,AST 90 U/L (15-37); BILIRUBIN TOTAL 0.4 mg/dL (0.2-1.0); CALCIUM 8.9 mg/dL (8.7-10.3); CARBON DIOXIDE,CO2 14.7 mmol/L (21.0-32.0); CHLORIDE,CL 93 mmol/L (98-107); CREATININE 1.48 mg/dL (0.51-1.17); EST CRCL DRUG DOSING (CG) 42.51 mL/min; POTASSIUM,K 3.5 mmol/L (3.5-5.1); PROTEIN TOTAL,TP 7.4 g/dL (6.4-8.2); SODIUM,NA 132 mmol/L (136-145)
[2023-11-01] MEDS: Cefepime 2 GM Vial IVPUSH ONE (00:12)
[2023-11-01 00:13] LABS: BLOOD UREA NITROGEN,BUN 61 mg/dL (7-18); GLUCOSE RANDOM > 500 mg/dL (70-140)
[2023-11-01 00:14] LABS: ESTIMATED GFR 51 mL/min (>=60)
[2023-11-01 00:17] LABS: ETHANOL BLOOD MEDICAL < 3 mg/dL (NONE DETECTED)
[2023-11-01] MEDS ORDERED: Heparin Sodium/D5W 250 ML IV SCH (00:30)
[2023-11-01] MEDS: Heparin Sodium 5,000 Units/ML Vial IVPUSH ONE (00:39)
[2023-11-01] MEDS: Heparin Sodium/D5W 250 ML IV SCH (00:41)
[2023-11-01] MEDS: Sodium Chloride 0.9% 1,000 ML IV ONE (00:50)
[2023-11-01 01:51] VITALS: BP 102/70; PULSE 100
== END 2023-11-01 01:49 ==
LOC: KA.ED 23:20
DX: I21.4 Non-ST elevation (NSTEMI) myocardial infarction (principal); A41.9 Sepsis, unspecified organism; N17.9 Acute kidney failure, unspecified; I10 Essential (primary) hypertension; E78.00 Pure hypercholesterolemia, unspecified; E11.9 Type 2 diabetes mellitus without complications; E03.9 Hypothyroidism, unspecified; Z79.84 Long term (current) use of oral hypoglycemic drugs; Z79.4 Long term (current) use of insulin; Z79.899 Other long term (current) drug therapy
CPT/HCPCS: 36415; 70450; 71045; 80053; 80307; 82803; 82947; 83605; 84484; 85025; 87040; 93010; 96361; 96374; 96375; 99284; 99285-25; J0692; J1644; J7030

== ENCOUNTER 2023-11-09 10:21 | Emergency (ER) | payer MEDICARE, MEDICAID ==
[2023-11-09 11:01] LABS: BASOPHILS ABSOLUTE AUTO 0.03 10^3/uL (0.00-0.10); BASOPHILS PERCENT AUTO 0.7 % (0.0-1.0); EOSINOPHILS ABSOLUTE AUTO 0.04 10^3/uL (0.10-0.30); HEMATOCRIT 28.8 % (40.0-52.0); HEMOGLOBIN 9.9 g/dL (13.0-17.0); IMMATURE GRAN ABSOLUTE AUTO 0.05 10^3/uL (0.00-0.50); IMMATURE GRAN PERCENT AUTO 1.2 % (0.0-5.0); LYMPHOCYTES ABSOLUTE AUTO 0.69 10^3/uL (1.00-4.00); LYMPHOCYTES PERCENT AUTO 17.2 % (20.0-40.0); MEAN CORPUSCULAR HEMOGLOBIN 31.8 pg (27.0-31.0); MEAN CORPUSCULAR HGB CONC 34.4 g/dL (32.0-36.0); MEAN CORPUSCULAR VOLUME 92.6 fL (82.0-92.0); MEAN PLATELET VOLUME 10.1 fL (7.4-10.4); MONOCYTES ABSOLUTE AUTO 0.66 10^3/uL (0.10-0.80); MONOCYTES PERCENT AUTO 16.5 % (2.0-8.0); NEUTROPHILS ABSOLUTE AUTO 2.54 10^3/uL (2.50-7.00); NEUTROPHILS PERCENT AUTO 63.4 % (50.0-70.0); PLATELET COUNT,PLT 176 10^3/uL (150-400); RED BLOOD CELL COUNT 3.11 10^6/uL (4.50-6.00); WHITE BLOOD CELL COUNT,WBC 4.01 10^3/uL (5.00-10.00)
[2023-11-09 11:18] LABS: ALBUMIN 2.88 g/dL (3.40-5.00); ANION GAP 11.1 mmol/L (5-15); BILIRUBIN TOTAL 0.4 mg/dL (0.2-1.0); CALCIUM 8.3 mg/dL (8.7-10.3); CARBON DIOXIDE,CO2 28.5 mmol/L (21.0-32.0); CREATININE 0.97 mg/dL (0.51-1.17); EST CRCL DRUG DOSING (CG) 64.86 mL/min; POTASSIUM,K 4.6 mmol/L (3.5-5.1); PROTEIN TOTAL,TP 6.3 g/dL (6.4-8.2)
[2023-11-09 11:42] LABS: INFLUENZA A NAA POSITIVE (NEGATIVE); INFLUENZA B NAA NEGATIVE (NEGATIVE); RESPIRATORY SYNCYTIAL VIR NAA NEGATIVE (NEGATIVE)
[2023-11-09 11:44] LABS: CORONAVIRUS COVID-19 NAA NEGATIVE (NEGATIVE)
[2023-11-09 12:13] VITALS: BP 108/54; PULSE 57
== END 2023-11-09 12:30 | disposition home or self-care (01) ==
LOC: KA.ED 10:21
DX: J10.1 Influenza due to other identified influenza virus with other respiratory manifestations (principal); E11.9 Type 2 diabetes mellitus without complications; I25.2 Old myocardial infarction; I10 Essential (primary) hypertension; E78.00 Pure hypercholesterolemia, unspecified; E03.9 Hypothyroidism, unspecified; Z79.4 Long term (current) use of insulin; Z79.899 Other long term (current) drug therapy; Z20.822 Contact with and (suspected) exposure to COVID-19
CPT/HCPCS: 0241U; 36415; 71045; 80053; 82947; 83605; 85025; 93010; 99284

== ENCOUNTER 2024-06-13 19:50 | Emergency (ER) | payer MEDICARE, MEDICAID ==
[2024-06-13] MEDS: Sodium Chloride 0.9% 10 ML Syringe FLUSH PRN (20:00)
[2024-06-13 20:28] LABS: BASOPHILS ABSOLUTE AUTO 0.02 10^3/uL (0.00-0.10); BASOPHILS PERCENT AUTO 0.3 % (0.0-1.0); EOSINOPHILS ABSOLUTE AUTO 0.02 10^3/uL (0.10-0.30); EOSINOPHILS PERCENT AUTO 0.3 % (1.0-3.0); HEMATOCRIT 35.8 % (40.0-52.0); HEMOGLOBIN 12.2 g/dL (13.0-17.0); IMMATURE GRAN ABSOLUTE AUTO 0.02 10^3/uL (0.00-0.50); IMMATURE GRAN PERCENT AUTO 0.3 % (0.0-5.0); LYMPHOCYTES ABSOLUTE AUTO 1.77 10^3/uL (1.00-4.00); LYMPHOCYTES PERCENT AUTO 22.6 % (20.0-40.0); MEAN CORPUSCULAR HEMOGLOBIN 32.3 pg (27.0-31.0); MEAN CORPUSCULAR HGB CONC 34.1 g/dL (32.0-36.0); MEAN CORPUSCULAR VOLUME 94.7 fL (82.0-92.0); MEAN PLATELET VOLUME 10.6 fL (7.4-10.4); MONOCYTES ABSOLUTE AUTO 0.39 10^3/uL (0.10-0.80); NEUTROPHILS ABSOLUTE AUTO 5.61 10^3/uL (2.50-7.00); NEUTROPHILS PERCENT AUTO 71.5 % (50.0-70.0); PLATELET COUNT,PLT 209 10^3/uL (150-400); RED BLOOD CELL COUNT 3.78 10^6/uL (4.50-6.00); RED CELL DISTRIBUTION WIDTH 14.8 % (11.5-14.5); WHITE BLOOD CELL COUNT,WBC 7.83 10^3/uL (5.00-10.00)
[2024-06-13 20:41] LABS: ALANINE AMINOTRANSFERASE,ALT 34 U/L (14-63); ALBUMIN 2.97 g/dL (3.40-5.00); ALKALINE PHOSPHATASE 123 U/L (46-116); ANION GAP 16.4 mmol/L (5-15); ASPARTATE AMNIOTRANSFERASE,AST 21 U/L (15-37); BILIRUBIN TOTAL 0.4 mg/dL (0.2-1.0); BLOOD UREA NITROGEN,BUN 28 mg/dL (7-18); C-REACTIVE PROTEIN < 0.50 mg/dL (0.00-0.50); CALCIUM 8.7 mg/dL (8.7-10.3); CARBON DIOXIDE,CO2 26.7 mmol/L (21.0-32.0); CHLORIDE,CL 98 mmol/L (98-107); CREATINE KINASE,CK 86 U/L (26-276); CREATININE 0.82 mg/dL (0.51-1.17); EST CRCL DRUG DOSING (CG) 75.64 mL/min; ESTIMATED GFR 95 mL/min (>=60); GLUCOSE RANDOM 295 mg/dL (70-140); POTASSIUM,K 5.1 mmol/L (3.5-5.1); PROTEIN TOTAL,TP 6.6 g/dL (6.4-8.2); SODIUM,NA 136 mmol/L (136-145)
[2024-06-13 20:48] LABS: APPEARANCE,URINE CLEAR (CLEAR); BILIRUBIN,URINE NEGATIVE (NEGATIVE); COLOR,URINE YELLOW (YELLOW); GLUCOSE,URINE >=1000 mg/dL (NEGATIVE); KETONES,URINE TRACE mg/dL (NEGATIVE); LEUKOCYTE ESTERASE,URINE NEGATIVE (NEGATIVE); NITRITE,URINE NEGATIVE (NEGATIVE); OCCULT BLOOD,URINE TRACE-INTACT (NEGATIVE); PH,URINE 6.5 (5.0-9.0); PROTEIN,URINE NEGATIVE (NEGATIVE); UROBILINOGEN,URINE 0.2 E.U./dL (0.2-1.0)
[2024-06-13 20:57] LABS: EPITHELIAL CELLS,URINE RARE /LPF; RBC,URINE 0-5 /HPF (0-5); WBC,URINE 0-5 /HPF (0-5)
[2024-06-13 20:58] LABS: BACTERIA,URINE RARE /HPF (NONE TO FEW)
[2024-06-13] MEDS: Clopidogrel 75 MG Tab PO ONE (21:02)
[2024-06-13 21:03] LABS: INR 0.9 (0.9-1.1); PTT,PARTIAL THROMBOPLSTIN TIME 23.6 SEC (23.3-34.9)
[2024-06-13 21:36] VITALS: BP 135/36; PULSE 53
== END 2024-06-13 22:00 ==
LOC: KA.ED 19:50
DX: I63.9 Cerebral infarction, unspecified (principal); E11.65 Type 2 diabetes mellitus with hyperglycemia; I10 Essential (primary) hypertension; I25.2 Old myocardial infarction; E78.00 Pure hypercholesterolemia, unspecified; E03.9 Hypothyroidism, unspecified; F17.210 Nicotine dependence, cigarettes, uncomplicated; Z90.49 Acquired absence of other specified parts of digestive tract; Z95.5 Presence of coronary angioplasty implant and graft; Z79.4 Long term (current) use of insulin; Z79.890 Hormone replacement therapy; Z79.899 Other long term (current) drug therapy
CPT/HCPCS: 36415; 70450; 71045; 80053; 81001; 82550; 82947; 84484; 85025; 85610; 85730; 86140; 93010; 99284; 99285; A9270-GY; J3490

== ENCOUNTER 2025-06-07 21:16 | Emergency (ER) | payer OTHER, MEDICAID ==
[2025-06-07] MEDS: Sodium Chloride 0.9% 10 ML Syringe FLUSH PRN (22:18)
[2025-06-07] MEDS: Ketorolac 30 MG/ML SDV IVPUSH ONE (22:23)
[2025-06-08 03:17] VITALS: BP 152/78; PULSE 53
== END 2025-06-07 22:35 | disposition home or self-care (01) ==
LOC: KA.ED 21:16
DX: M62.838 Other muscle spasm (principal); I25.2 Old myocardial infarction; E78.00 Pure hypercholesterolemia, unspecified; I10 Essential (primary) hypertension; E11.9 Type 2 diabetes mellitus without complications; E03.9 Hypothyroidism, unspecified; Z91.018 Allergy to other foods; Z79.4 Long term (current) use of insulin; Z79.899 Other long term (current) drug therapy; Z79.890 Hormone replacement therapy; Z79.82 Long term (current) use of aspirin; Z79.02 Long term (current) use of antithrombotics/antiplatelets
CPT/HCPCS: 96374; 99283; 99283-25; J1885